=== PATIENT | male | born 1945 | race Caucasian/White ===

== ENCOUNTER → 2016-12-28 | Day surgery (SDC) | payer OTHER, MEDICAID ==
[~2016-12-28] MED LIST: D5 LR 1000 ML 1,000 ML IV ONE; DIPRIVAN VIAL 20 ML ONE
[2016-12-28 10:25] VITALS: BP 150/71
== END ==
LOC: SURG1 07:39
PROVIDERS: ATTEND Internal Medicine Gastroenterology
PROC: 0DJ08ZZ Inspection of Upper Intestinal Tract, Via Natural or Artificial Opening Endoscopic (ICD-10-PCS; principal; 2016-12-28 09:00)
PROC: 0DB68ZX Excision of Stomach, Via Natural or Artificial Opening Endoscopic, Diagnostic (ICD-10-PCS; principal; 2016-12-28 09:00)
PROC: 0D757ZZ Dilation of Esophagus, Via Natural or Artificial Opening (ICD-10-PCS; principal; 2016-12-28 09:00)
PROC: 0DB88ZX Excision of Small Intestine, Via Natural or Artificial Opening Endoscopic, Diagnostic (ICD-10-PCS; principal; 2016-12-28 09:00)
DX: R13.19 Other dysphagia (principal); K21.9 Gastro-esophageal reflux disease without esophagitis; K22.4 Dyskinesia of esophagus; K22.2 Esophageal obstruction; K20.8 Other esophagitis; K29.60 Other gastritis without bleeding
CPT/HCPCS: A4217; J3490; J7120

== ENCOUNTER 2017-03-03 11:36 | Emergency (ER) | payer OTHER, MEDICAID ==
[2017-03-03 11:41] VITALS: BP 157/73; BMI 30.5
[2017-03-03] MEDS ORDERED: LASIX IVP ONE ×2 (13:43→14:17)
[2017-03-03] MEDS ORDERED: DUONEB 0.5 MG/3 MG NEB ONE (13:44)
[2017-03-03] MEDS ORDERED: SOLU-Medrol 125 MG VIAL IVP ONE (13:44)
--- NOTE | 2017-03-03 13:49 | DR.GENAD ---
HPI - PCP Primary Care Physician: KUSHAL AKBAR - Complaint/Symptoms Chief Complaint Doctors Comments: Patient states he has been having SOB, wheezing and problems breathing for the past 3-4 days getting worst. patient states he has been having problems swallowing since his throat was stretched recently by Dr. Bauman few weeks ago. States he had his throat stretched three years ago. States he has been having swelling of his legs and feet with CIFUENTES and SOB with him being unable to lay flat. States he sleeps in the chair all night. He has inhalers that he has been using at home without improvement. States he smokes 1 1/2 pack cigarettes daily. He has a cough with whitish sputum production but denies chest pain or any recent trauma. Chief Complaint:: PATIENT IS C/O SOB BREATH AND FEELS HE CAN'T SWOLLOW. PATIENT STATED THAT IS HAS BEEN GOING ON FOR 2-3 DAYS - Nurses notes reviewed Nurses Notes Review: Yes - Source History Provided: Patient - Mode of Arrival Mode of Arrival: Ambulatory - Timing Onset of Chief Complaint: 03/01/17 Came on: Gradually - Duration Duration: Constant How lon Duration: Days - Location Location: SOB with leg swelling - Severity Severity: Moderate - Modifying Factors Worsens:: laying flat Improves:: nothing PMH - PMH Past Medical History: Yes Past Medical History: Diabetes, Dyslipidemia, Hypertension Past Surgical History: Yes Past Surgical History Comment: EGD,EYE - Family History History of Family Medical Conditions: No - Social History Does patient currently use any type of tobacco product: Yes Have you used tobacco products in the last 12 months: Yes Type of Tobacco Use: Cigarettes Does any household member use tobacco: No Alcohol Use: None Do you use any recreational Drugs:: No Lives With: Family Lives Where: Home - infectious screening In the last 2 months have you had wt loss of >10#?: NO Have you had fever, night sweats or hemotysis?: No Have you traveled outside the country in the last 6 months?: No Isolation: Standard ROS - Review of Systems Constitutional: No Symptoms Reported Eyes: No Symptoms Reported ENTM: No Symptoms Reported Respiratoy: No Symptoms Reported Cardiovascular: No Symptoms Reported Gastrointestinal/Abdominal: No Symptoms Reported Genitourinary: No Symptoms Reported Neurological: No Symptoms Reported Musculoskeletal: No Symptoms Reported Integumentary: No Symptoms Reported Hematologic/Lymphatic: No Symptoms Reported Endocrine: No Symptoms Reported Psychiatric: No Symptoms Reported PE - Vital Signs Vitals: Temperature 98.7 F Pulse Rate 56 Respiratory Rate 20 Blood Pressure 157/73 O2 Sat by Pulse Oximetry 92 - General Limitations: No Limitations General Appearance: Alert, In Distress (moderate) - Head Head Exam: Normal Inspection, Atraumatic, Normocephalic - Eyes Eye exam: Normal Appearance, PERRL, EOMI. negative: Scleral Icterus, Conjunctival Injection, Nystagmus, Miosis, Mydrasis, Periorbital Swelling, Periorbital Tenderness, Other - ENT ENT Exam: Normal Exam, Normal Oropharynx, Normal External Ear Exam, Mucous Membranes Moist, TM's Normal Bilaterally External Ear Exam: Normal External Inspection TM/Canal Exam: Bilateral Normal Nose Exam: Normal Nose Exam Mouth Exam: Normal Inspection Throat Exam: Normal Inspection - Neck Neck Exam: Normal Inspection, Full ROM, Trachea Midline. negative: Tenderness, Meningismus, Lymphadenopathy, Thyromegaly, Other - Chest Chest Inspection: Normal Inspection, Symmetric Chest Wall Rise - Respiratory Respiratory Exam: Normal Lung Sounds Bilat, Prolonged Expiratory Phase Respiratory Exam: Bilateral Wheezing, Bilateral Decreased Breath Sounds - Cardiovascular Cardiovascular Exam: Regular Rate, Normal Rhythm, Normal Heart Sounds, Systolic Murmur - Abdominal Exam Abdominal Exam: Normal Inspection, Normal Bowel Sounds, Soft, Distention Abdominal Tenderness: negative: RUQ, RLQ, LUQ, LLQ, Epigastrium, Suprapubic, Diffuse, Mild, Moderate, Severe, Other - Extremities Extremities Exam: Normal Inspection, Full ROM, Normal Capillary Refill, Edema (3 + edema legs and feet). negative: Tenderness, Joint Swelling, Calf Tenderness, Other - Back Back Exam: Normal Inspection, Full ROM. negative: Tenderness, (R) CVA Tenderness, (L) CVA Tenderness, Muscle Spasm, Paraspinal Tenderness, Vertebral Tenderness, Rashes, (R) Sciatic Notch Tenderness, (L) Sciatic Notch Tendern, (R ) Straight Leg Raise, (L) Straight Leg Raise, Other - Neurologic Neurological Exam: Alert, Oriented X3, CN II-XII Intact, Reflexes Normal. negative: Normal Gait (gait not tested) - Psychiatric Psychiatric Exam: Normal Affect, Normal Mood - Skin Skin Exam: Warm, Dry, Intact, Normal Color Course - Reevaluation 1st: Improved (Patient states he is not going to stay in the hospital. States he is feeling better and is ready to go home. Explained about his D-dimer test and need for CTA but states he is ready to go home.) - Education/Counseling Education/Counseling: Patient, Family Educated On: Treatment, Diagnosis, Prognosis, Needs for Follow Up ROR - Labs Reviewed Laboratory Results Reviewed?: Yes (All labs and x-ray results reviewed and discussed with patient and .) Result Diagrams: 03/03/17 13:55 03/03/17 13:55 Laboratory: WBC 8.1 X10^3/uL (3.6-10.0) 03/03/17 13:55 RBC 4.10 X10^6/uL (4.7-6.0) L 03/03/17 13:55 Hgb 12.4 g/dL (13.5-18.0) L 03/03/17 13:55 Hct 37.5 % (42.0-54.0) L 03/03/17 13:55 MCV 91.4 fL (80.0-100.0) 03/03/17 13:55 MCH 30.2 pg (27.0-34.0) 03/03/17 13:55 MCHC 33.1 g/dL (33.0-35.0) 03/03/17 13:55 RDW 15.0 % (11.6-16.5) 03/03/17 13:55 Plt Count 197 X10^3/uL (150.0-450.0) 03/03/17 13:55 MPV 7.4 fL (7.4-11.0) 03/03/17 13:55 Neut % 58.0 % (42.0-75.0) 03/03/17 13:55 Lymph % 30.8 % (21.0-51.0) 03/03/17 13:55 Trimble % 8.9 % (0.0-13.0) 03/03/17 13:55 Eos % 1.7 % (0.9-2.9) 03/03/17 13:55 Baso % 0.6 % (0.2-1.0) 03/03/17 13:55 Neut # 4.7 x10^3/uL (2.2-4.8) 03/03/17 13:55 Lymph # 2.5 X10^3/uL (1.3-2.9) 03/03/17 13:55 [place]ble # 0.7 x10^3/uL (0.3-0.8) 03/03/17 13:55 Eos # 0.1 x10^3/uL (0.0-0.2) 03/03/17 13:55 Baso # 0.0 X10^3/uL (0.0-0.1) 03/03/17 13:55 Absolute Nucleated RBC 0.0 /100WBC 03/03/17 13:55 INR Target Range - 03/03/17 13:55 INR 1.06 (0.8-1.3) 03/03/17 13:55 PTT 27.0 SECONDS (22.9-36.5) 03/03/17 13:55 PTT Comment - 03/03/17 13:55 D-Dimer 500 ng/mL (0-400) H* 03/03/17 13:55 Sodium 142 mmol/L (136-145) 03/03/17 13:55 Corrected Sodium TNP 03/03/17 13:55 Potassium 4.3 mmol/L (3.5-5.1) 03/03/17 13:55 Chloride 105 mmol/L (98-107) 03/03/17 13:55 Carbon Dioxide 31.7 mmol/L (21-32) 03/03/17 13:55 BUN 16 mg/dL (7-18) 03/03/17 13:55 Creatinine 1.15 mg/dL (0.70-1.30) 03/03/17 13:55 Est GFR (MDRD) Af Amer > 60 (>60) 03/03/17 13:55 Est GFR (MDRD) Non-Af > 60 (>60) 03/03/17 13:55 Glucose 87 mg/dL (65-99) 03/03/17 13:55 Calcium 9.7 mg/dL (8.5-10.1) 03/03/17 13:55 Corrected Calcium TNP 03/03/17 13:55 Magnesium 1.6 mg/dL (1.7-2.9) L 03/03/17 13:55 Total Bilirubin 0.40 mg/dL (0.2-1.0) 03/03/17 13:55 AST 16 Units/L (15-37) 03/03/17 13:55 ALT 15 Units/L (12-78) 03/03/17 13:55 Alkaline Phosphatase 40 Units/L (46-116) L 03/03/17 13:55 Creatine Kinase 73 Units/L (39-308) 03/03/17 13:55 CK-MB (CK-2) 1.7 ng/mL (0-4.0) 03/03/17 13:55 CK/CKMB % Calc 2.3 % (<4) 03/03/17 13:55 Troponin I < 0.02 ng/mL (0-1.5) 03/03/17 13:55 Total Protein 7.3 g/dL (6.4-8.2) 03/03/17 13:55 Albumin 3.5 g/dL (3.4-5.0) 03/03/17 13:55 Globulin 3.8 g/dL (2.5-4.5) 03/03/17 13:55 Albumin/Globulin Ratio 0.9 Ratio (1.1-2.1) L 03/03/17 13:55 - XRAY XRAY Interpreted by: Radiologist (CXR: COPD finding likely indicating pulmonary hypertension. No acute process identified.) - EKG Rate: 53 Odell: Normal Rhythm: SB ST: Inf, Nonsp - Diagnosis Discharge Problem: COPD exacerbation, Dependent edema, Pulmonary hypertension, Bronchitis - Discharge Plan Disposition: HOME, SELF-CARE Condition: Stable Prescriptions: Levofloxacin [LEVAQUIN TAB 500 MG *] 500 mg PO Q24H #7 tab Prednisone [PREDNISONE TAB 20 MG *] 20 mg PO QAM #5 tab - Follow ups/Referrals Follow ups/Referrals: EDDA,None [Primary Care Provider] - 3 days CAROLINA EDGAR [STAFF PHYSICIAN] - 3 days - Instructions Instructions: Chronic Obstructive Pulmonary Disease, Acute Bronchitis, Easy-to- Read, Edema, Pulmonary Hypertension
[2017-03-03] MEDS ORDERED: DUONEB 0.5 MG/3 MG ONE (13:50)
[2017-03-03 14:16] LABS: BASOPHILS % (AUTO) 0.6 % (0.2-1.0); EOSINOPHILS # (AUTO) 0.1 x10^3/uL (0.0-0.2); EOSINOPHILS % (AUTO) 1.7 % (0.9-2.9); HEMATOCRIT 37.5 % (42.0-54.0); HEMOGLOBIN 12.4 g/dL (13.5-18.0); LYMPHOCYTES # (AUTO) 2.5 X10^3/uL (1.3-2.9); LYMPHOCYTES % (AUTO) 30.8 % (21.0-51.0); MEAN CORPUSCULAR HEMOGLOBIN 30.2 pg (27.0-34.0); MEAN CORPUSCULAR HGB CONC 33.1 g/dL (33.0-35.0); MEAN CORPUSCULAR VOLUME 91.4 fL (80.0-100.0); MEAN PLATELET VOLUME 7.4 fL (7.4-11.0); MONOCYTES # (AUTO) 0.7 x10^3/uL (0.3-0.8); MONOCYTES % (AUTO) 8.9 % (0.0-13.0); NEUTROPHILS # (AUTO) 4.7 x10^3/uL (2.2-4.8); PLATELET COUNT 197 X10^3/uL (150.0-450.0); WHITE BLOOD COUNT 8.1 X10^3/uL (3.6-10.0)
[2017-03-03] MEDS ORDERED: SOLU-Medrol 125 MG VIAL ONE (14:17)
[2017-03-03 14:27] LABS: BLOOD UREA NITROGEN 16 mg/dL (7-18); CALCIUM 9.7 mg/dL (8.5-10.1); CARBON DIOXIDE 31.7 mmol/L (21-32); CHLORIDE 105 mmol/L (98-107); CREATININE 1.15 mg/dL (0.70-1.30); GLUCOSE 87 mg/dL (65-99); SODIUM 142 mmol/L (136-145); TROPONIN I < 0.02 ng/mL (0-1.5); eGFR BLACK RACES > 60 (>60); eGFR NON BLACK RACES > 60 (>60)
[2017-03-03 14:31] LABS: ALANINE AMINOTRANSFERASE 15 Units/L (12-78); ALBUMIN 3.5 g/dL (3.4-5.0); ALKALINE PHOSPHATASE 40 Units/L (46-116); ASPARTATE AMINO TRANSFERASE 16 Units/L (15-37); CKMB % 2.3 % (<4); CREATINE KINASE 73 Units/L (39-308); CREATINE KINASE MB 1.7 ng/mL (0-4.0); MAGNESIUM 1.6 mg/dL (1.7-2.9); TOTAL PROTEIN 7.3 g/dL (6.4-8.2)
--- NOTE | 2017-03-03 16:53 | RAD ---
HISTORY: Chest pain, shortness of breath Study: Single-view chest Comparison: No priors Findings: Trachea is midline. There is cardiomegaly with atherosclerotic calcification and uncoiling of the ao rtic arch. There is prominence of the main pulmonary artery segment. Hyperinflation of the lungs is seen with increased interstitial markings. Findings likely represent COPD in the appropriate clinica l setting some element of pulmonary artery hypertension may be present also. No infiltrate, CHF, ple ural fluid or pneumothorax is seen. No acute osseous changes are seen. IMPRESSION: COPD with findings likely indicating pulmonary artery hypertension. An acute process is not identifi ed. Hypertensive configuration. Reported By:
[2017-03-05 07:32] LABS: D DIMER 500 ng/mL (0-400)
== END 2017-03-03 17:44 | disposition home or self-care (01) ==
LOC: ER 11:42
DX: J44.1 Chronic obstructive pulmonary disease with (acute) exacerbation (principal); I27.2 Other secondary pulmonary hypertension; R60.9 Edema, unspecified; J40 Bronchitis, not specified as acute or chronic; Z79.01 Long term (current) use of anticoagulants; R06.02 Shortness of breath
CPT/HCPCS: 36415; 71010; 80053; 82550; 82553; 83735; 84484; 85025; 85378; 85610; 85730; 93005; 93010; 94640; 96365; 96374; 96375; 99283; A4222; J1940; J2930; J7620

== ENCOUNTER 2017-04-10 07:56 | Inpatient (IN) | payer OTHER, MEDICAID ==
[2017-04-10 08:01] VITALS: BMI 25.8
[2017-04-10 08:34] LABS: ABG BASE EXCESS 5.9 mmol/L (-2.0-2.0)
[2017-04-10 08:35] LABS: ABG ALLEN TEST POS
[2017-04-10] MEDS ORDERED: SOLU-Medrol 125 MG VIAL ONE (08:36)
[2017-04-10] MEDS ORDERED: SOLU-Medrol 125 MG VIAL IVP ONE (08:36)
[2017-04-10] MEDS ORDERED: LASIX IVP ONE ×2 (08:38)
[2017-04-10 09:07] LABS: BASOPHILS # (AUTO) 0.1 X10^3/uL (0.0-0.1); BASOPHILS % (AUTO) 0.7 % (0.2-1.0); EOSINOPHILS % (AUTO) 0.1 % (0.9-2.9); HEMATOCRIT 38.3 % (42.0-54.0); HEMOGLOBIN 12.5 g/dL (13.5-18.0); LYMPHOCYTES # (AUTO) 1.8 X10^3/uL (1.3-2.9); LYMPHOCYTES % (AUTO) 14.4 % (21.0-51.0); MEAN CORPUSCULAR HEMOGLOBIN 29.8 pg (27.0-34.0); MEAN CORPUSCULAR HGB CONC 32.7 g/dL (33.0-35.0); MEAN CORPUSCULAR VOLUME 91.2 fL (80.0-100.0); MEAN PLATELET VOLUME 7.5 fL (7.4-11.0); MONOCYTES # (AUTO) 0.8 x10^3/uL (0.3-0.8); MONOCYTES % (AUTO) 6.1 % (0.0-13.0); NEUTROPHILS # (AUTO) 9.8 x10^3/uL (2.2-4.8); NEUTROPHILS % (AUTO) 78.7 % (42.0-75.0); PLATELET COUNT 208 X10^3/uL (150.0-450.0); RED CELL DISTRIBUTION WIDTH 15.7 % (11.6-16.5); WHITE BLOOD COUNT 12.4 X10^3/uL (3.6-10.0)
[2017-04-10] MEDS ORDERED: NORCO 10/325 TAB PO ONE (09:15)
[2017-04-10] MEDS ORDERED: NORCO 10/325 TAB ONE (09:16)
[2017-04-10 09:19] LABS: BLOOD UREA NITROGEN 17 mg/dL (7-18); CALCIUM 8.8 mg/dL (8.5-10.1); CARBON DIOXIDE 30.7 mmol/L (21-32); CHLORIDE 101 mmol/L (98-107); COR NA(FOR HYPERGLY) 141 mmol/L (136-145); GLUCOSE 126 mg/dL (65-99); SODIUM 140 mmol/L (136-145); TROPONIN I 0.05 ng/mL (0-1.5); eGFR BLACK RACES > 60 (>60); eGFR NON BLACK RACES > 60 (>60)
[2017-04-10] MEDS ORDERED: ZESTRIL TAB 5 MG PO ONE (09:22)
[2017-04-10] MEDS ORDERED: TENORMIN PO ONE (09:22)
[2017-04-10 09:28] LABS: B-TYPE NATRIURETIC PEPTIDE 218 pg/mL (0-79)
--- NOTE | 2017-04-10 09:31 | DR.SOBA ---
HPI - Time Seen Time seen: 08:30 - Primary Care Physician Primary Care Physician: ? DOCTOR IN [place] - HPI Comment HPI Comment: TODAY, IT GOT WORSE. HE ALSO HAD STRIDOR THIS MORNING. NO FEVER. MEDS AT HOME DID NOT HELP. HAVE COPD AND POSSIBLY CHF. - Complaints Chief Complaint Doctors Comments: DIFFICULTY BREATHING TIMES 2 MONTHS. Chief Complaint:: EMS OUT TO PT WITH C/O DIFFICULTY BREATHING .. UPON ARRIVAL PT FOUND WITH 02 SAT OF 70.. DUO NEB GIVEN PT SATS INCREASED TO 98..BR - Reviewed Nurses Notes Reviewed: Yes - Source History Provided: Patient, EMS - Mode of Arrival Mode of Arrival: Stretcher - Timing Onset of Chief Complaint: 04/10/17 - Duration Duration: Days - Context Onset:: At Rest Prehospital Care:: None - Modifying Factors Worsens:: Exertion, Lying Flat, Anxiety Improves:: Inhaler, Sitting Up - Associated Signs and Symptoms Associated Signs and Symptoms: Wheeze, Cough, Chest Pain, Leg Swelling - If Cough Cough: Productive, Clear PMH - PMH Past Medical History: Yes Past Medical History: Diabetes, Dyslipidemia, Hypertension Past Medical History Comment: CHF Past Surgical History: Yes - Family History History of Family Medical Conditions: No - Social History Does patient currently use any type of tobacco product: No Have you used tobacco products in the last 12 months: No Type of Tobacco Use: None Does any household member use tobacco: No Alcohol Use: None Do you use any recreational Drugs:: No Lives With: Family Lives Where: Home - infectious screening In the last 2 months have you had wt loss of >10#?: NO Have you had fever, night sweats or hemotysis?: No Have you traveled outside the country in the last 6 months?: No Isolation: Standard ROS - Review of Systems Constitutional: Weakness, Fatigue. negative: Chills Eyes: No Symptoms Reported. negative: Eye Pain, Discharge ENTM: Nose Congestion. negative: Ear Pain, Nose Discharge, Throat Pain Respiratoy: Productive Cough, Short of Breath, Stridor, Wheezing. negative: Hemoptysis Cardiovascular: Chest Pain, Edema, Palpitations Gastrointestinal/Abdominal: Nausea. negative: Abdominal Pain, Diarrhea, Vomiting Genitourinary: negative: Dysuria, Hematuria Neurological: Headache, Weakness, Dizziness, Problems Walking Musculoskeletal: Muscle Pain Integumentary: Change in Color, Other (EDEMA) Hematologic/Lymphatic: Easy Bleeding, Easy Bruising Endocrine: No Symptoms Reported All Other Systems: Reviewed and Negative PE - Vital Signs Vitals: Temperature 98.3 F Pulse Rate 75 Respiratory Rate 22 Blood Pressure 208/93 O2 Sat by Pulse Oximetry 90 - General Limitations: No Limitations General Appearance: Alert - Head Head Exam: Normal Inspection - Eyes Eye exam: Normal Appearance - ENT ENT Exam: Normal External Ear Exam - Neck Neck Exam: Trachea Midline - Chest Chest Inspection: Symmetric Chest Wall Rise - Respiratory Respiratory Exam: Bilateral Wheezing, Bilateral Rhonchi, Bilateral Decreased Breath Sounds, Upper Wheezing, Upper Rhonchi, Lower Wheezing, Lower Rhonchi, Lower Decreased Breath Sounds - Cardiovascular Cardiovascular Exam: Normal Rhythm, Tachycardia, Normal Heart Sounds - Abdominal Exam Abdominal Exam: Normal Bowel Sounds, Soft. negative: Tenderness - Extremities Extremities Exam: Edema - Back Back Exam: Paraspinal Tenderness - Neurologic Neurological Exam: Alert, Oriented X3 - Psychiatric Psychiatric Exam: Anxious - Skin Skin Exam: Erythema MDM - Additional Information Obtained Additional Information Obtained From: Family - Differential Diagnosis Differential Diagnosis: Bronchitis, CHF, COPD, Mycardial Infarction, Pneumonia, Pneumothorax, Respiratory Insufficiency, URI Course - Treatment Treatment: SEE ORDERS - Education/Counseling Education/Counseling: Patient, Family, Education Educated On: Treatment, Diagnosis ROR - Labs Reviewed Laboratory Results Reviewed?: Yes Result Diagrams: 04/10/17 08:49 04/10/17 08:49 Laboratory: Sample Site Lra 04/10/17 08:21 ABG pH 7.320 (7.35-7.45) L 04/10/17 08:21 ABG pCO2 66.0 mmHg (35.0-45.0) H* 04/10/17 08:21 ABG pO2 58.0 mmHg (80.0-100.0) L 04/10/17 08:21 ABG HCO3 34.0 mmol/L (22-26) H* 04/10/17 08:21 ABG O2 Saturation 87.0 % (90-100) L 04/10/17 08:21 ABG Base Excess 5.9 mmol/L (-2.0-2.0) H 04/10/17 08:21 Dutch Test Pos 04/10/17 08:21 A-a Gradient 59.0 mmHg 04/10/17 08:21 FiO2 28.000 04/10/17 08:21 Blood Gas Comments Lashell well cs 04/10/17 08:21 - XRAY XRAY Interpreted by: Radiologist XRAY Findings: REPORT DISCUSS WITH PATIENT AND HIS FAMILY. - EKG Rhythm: NSR (EKG NOTED.) - Diagnosis Discharge Problem: COPD with acute exacerbation, Bronchitis, Respiratory insufficiency CHF (congestive heart failure) Qualifiers: Congestive heart failure type: combined Congestive heart failure chronicity: acute on chronic Qualified Code(s): I50.43 - Acute on chronic combined systolic (congestive) and diastolic (congestive) heart failure - Discharge Plan Disposition: ADMITTED INPATIENT Condition: Stable - Follow ups/Referrals - Instructions
[2017-04-10] MEDS ORDERED: ROCEPHIN VIAL 1 GM 1 GM in NS 50 ML IV + SPIKE MINIBAG* 50 ML IV ONE (09:40)
[2017-04-10] MEDS ORDERED: ROCEPHIN VIAL 1 GM ONE (09:43)
[2017-04-10] MEDS ORDERED: SALINE 0.9% 3 ML NEB TX ONE (09:51)
[2017-04-10] MEDS ORDERED: DUONEB 0.5 MG/3 MG ONE (09:51)
[2017-04-10 09:53] LABS: ALANINE AMINOTRANSFERASE 22 Units/L (12-78); ALBUMIN 3.1 g/dL (3.4-5.0); ALKALINE PHOSPHATASE 47 Units/L (46-116); ASPARTATE AMINO TRANSFERASE 27 Units/L (15-37); COR CA(FOR HYPOALB) 9.5 mg/dL (8.5-10.1); CREATINE KINASE 230 Units/L (39-308); TOTAL PROTEIN 7.1 g/dL (6.4-8.2)
[2017-04-10 09:59] LABS: CREATINE KINASE MB 4.5 ng/mL (0-4.0)
[2017-04-10] MEDS ORDERED: PULMICORT NEB TX 0.5 MG NEB ONE (10:01)
[2017-04-10] MEDS ORDERED: DUONEB 0.5 MG/3 MG NEB ONE (10:01)
[2017-04-10] MEDS ORDERED: ZOFRAN INJ 4 MG VIAL ONE (10:23)
[2017-04-10] MEDS ORDERED: MORPHINE SULFATE INJ 4 MG ONE (10:23)
[2017-04-10] MEDS ORDERED: MORPHINE SULFATE INJ 4 MG IVP ONE (10:37)
[2017-04-10] MEDS ORDERED: ZOFRAN INJ 4 MG VIAL IVP ONE (10:37)
[2017-04-10] MEDS: DUONEB 0.5 MG/3 MG NEB SCH ×3 (12:27→21:23)
--- NOTE | 2017-04-10 12:27 | RAD ---
Chest AP Indication: Shortness of breath. Comparison: March 03, 2017 Findings: The left costophrenic angle has been excluded from the exam and the patient is rotated towards the l eft. Given these limitations, streaky bibasilar opacities likely reflect atelectasis. The visualized lungs otherwise appear clear without focal consolidation or significant effusion. There is stable c ardiomegaly with unchanged prominence of the main pulmonary artery. No anthony interstitial edema is i dentified. Bony thorax appears normal. Impression: Stable mild cardiomegaly and unchanged prominence of the main pulmonary artery, suggestive of pulmon margret arterial hypertension. No current evidence of congestive failure or focal pneumonia. Reported By:
[2017-04-10 14:33] LABS: ABG BASE EXCESS 6.5 mmol/L (-2.0-2.0)
[2017-04-10 14:35] LABS: ABG ALLEN TEST POS; ABG HCO3 35.7 mmol/L (22-26)
[2017-04-10 15:18] LABS: BILIRUBIN,URINE NEGATIVE (NEGATIVE); BLOOD/HEMOGLOBIN,URINE 3+ (NEGATIVE); GLUCOSE, URINE NEGATIVE (NEGATIVE); KETONES,URINE NEGATIVE (NEGATIVE); LEUKOCYTE ESTERASE ,URINE 1+ (NEGATIVE); NITRITES,URINE NEGATIVE (NEGATIVE); PROTEIN,URINE 4+ (NEGATIVE); UROBILINOGEN,URINE NORMAL (NORMAL)
[2017-04-10 15:41] LABS: APPEARANCE,URINE HAZY (CLEAR); BACTERIA,URINE TRACE /HPF (NEGATIVE); COLOR,URINE YELLOW (YELLOW); RBC,URINE 0-2 /HPF (NEGATIVE); SQUAMOUS EPITHELIAL CELL,UR NEGATIVE /HPF (NEGATIVE)
[2017-04-10 15:42] LABS: MUCUS,URINE FEW /HPF (NEGATIVE)
[2017-04-10 16:17] LABS: CKMB % 2.4 % (<4); TROPONIN I 0.06 ng/mL (0-1.5)
[2017-04-10 16:21] LABS: CREATINE KINASE MB 5.3 ng/mL (0-4.0)
[2017-04-10] MEDS ORDERED: VALIUM INJ ONE (17:15)
[2017-04-10] MEDS ORDERED: VALIUM INJ IVP PRN (17:33)
[2017-04-10] MEDS ORDERED: HumuLIN R SC PRN (21:54)
[2017-04-10] MEDS ORDERED: ATIVAN TAB 0.5 MG PO PRN (21:58)
[2017-04-10] MEDS ORDERED: NORCO 10/325 TAB PO PRN (21:59)
[2017-04-10 22:25] LABS: TROPONIN I 0.05 ng/mL (0-1.5)
[2017-04-10 23:05] LABS: CKMB % 2.4 % (<4)
[2017-04-10 23:06] LABS: CREATINE KINASE MB 4.9 ng/mL (0-4.0)
[2017-04-10] MEDS: SOLU-Medrol 40 MG VIAL IVP SCH (23:08)
[2017-04-11] MEDS: DUONEB 0.5 MG/3 MG NEB SCH ×6 (00:54→21:10)
[2017-04-11 05:33] LABS: ALANINE AMINOTRANSFERASE 20 Units/L (12-78); ALBUMIN 2.9 g/dL (3.4-5.0); ALKALINE PHOSPHATASE 43 Units/L (46-116); ASPARTATE AMINO TRANSFERASE 24 Units/L (15-37); BLOOD UREA NITROGEN 28 mg/dL (7-18); CALCIUM 8.5 mg/dL (8.5-10.1); CARBON DIOXIDE 33.8 mmol/L (21-32); CHLORIDE 100 mmol/L (98-107); CHOL/HDL RATIO 2.4 (0.0-5.0); CHOLESTEROL 145 mg/dL (0-200); COR CA(FOR HYPOALB) 9.4 mg/dL (8.5-10.1); COR NA(FOR HYPERGLY) 142 mmol/L (136-145); CREATININE 1.08 mg/dL (0.70-1.30); GLUCOSE 219 mg/dL (65-99); HDL CHOLESTEROL 61 mg/dL (40-60); MAGNESIUM 1.9 mg/dL (1.7-2.9); SODIUM 139 mmol/L (136-145); TRIGLYCERIDES 104 mg/dL (0-150); eGFR BLACK RACES > 60 (>60); eGFR NON BLACK RACES > 60 (>60)
[2017-04-11] MEDS ORDERED: GLUCOPHAGE ONE ×3 (05:51→16:49)
[2017-04-11 05:56] LABS: BASOPHILS # (AUTO) 0.1 X10^3/uL (0.0-0.1); BASOPHILS % (AUTO) 0.5 % (0.2-1.0); HEMATOCRIT 38.8 % (42.0-54.0); HEMOGLOBIN 12.9 g/dL (13.5-18.0); LYMPHOCYTES # (AUTO) 1.1 X10^3/uL (1.3-2.9); LYMPHOCYTES % (AUTO) 9.4 % (21.0-51.0); MEAN CORPUSCULAR HEMOGLOBIN 30.6 pg (27.0-34.0); MEAN CORPUSCULAR HGB CONC 33.3 g/dL (33.0-35.0); MEAN CORPUSCULAR VOLUME 91.9 fL (80.0-100.0); MEAN PLATELET VOLUME 8.1 fL (7.4-11.0); MONOCYTES # (AUTO) 0.3 x10^3/uL (0.3-0.8); MONOCYTES % (AUTO) 2.9 % (0.0-13.0); NEUTROPHILS # (AUTO) 9.8 x10^3/uL (2.2-4.8); NEUTROPHILS % (AUTO) 87.2 % (42.0-75.0); PLATELET COUNT 227 X10^3/uL (150.0-450.0); RED BLOOD COUNT 4.22 X10^6/uL (4.7-6.0); RED CELL DISTRIBUTION WIDTH 15.4 % (11.6-16.5); WHITE BLOOD COUNT 11.2 X10^3/uL (3.6-10.0)
[2017-04-11] MEDS: SOLU-Medrol 40 MG VIAL IVP SCH ×2 (06:23→14:59)
[2017-04-11] MEDS: GLUCOPHAGE PO SCH ×2 (06:23→16:30)
[2017-04-11] MEDS: HumuLIN R SUBCUT PRN ×3 (06:23→20:17)
[2017-04-11] MEDS ORDERED: NS 500 ML IV 500 ML IV ONE (08:38)
[2017-04-11] MEDS: ROCEPHIN VIAL 1 GM 1 GM in NS 50 ML IV + SPIKE MINIBAG* 50 ML IV SCH ×2 (09:00→09:02)
[2017-04-11] MEDS: COLACE CAP 100 MG PO SCH (09:01)
[2017-04-11] MEDS: PriLOSEC PO SCH (09:01)
[2017-04-11] MEDS: NIASPAN ER TAB 500 MG PO SCH (09:01)
[2017-04-11] MEDS: TENORMIN PO SCH (09:01)
[2017-04-11] MEDS: ASPIRIN 81 MG CHEWTAB PO SCH (09:04)
[2017-04-11] MEDS: FLONASE NASAL SPRAY ENOSTRIL SCH ×3 (09:08→20:18)
[2017-04-11] MEDS: ZESTRIL TAB 5 MG PO SCH (09:08)
[2017-04-11] MEDS ORDERED: TENORMIN PO ONE (09:15)
[2017-04-11] MEDS ORDERED: ZESTRIL TAB 5 MG PO ONE (09:15)
[2017-04-11] MEDS: LASIX PO SCH (09:25)
[2017-04-11] MEDS: BROVANA IN SCH ×2 (09:58→21:10)
[2017-04-11] MEDS: PULMICORT NEB TX 0.5 MG NEB SCH ×2 (09:58→21:10)
--- NOTE | 2017-04-11 13:12 | DR.H&P ---
H&P - History & Physical for Day of: H&P Date: 04/10/17 - Chief Complaint Chief Complaint: SOB, CCC - Allergies Allergies/Adverse Reactions: Allergies Allergy/AdvReac Type Severity Reaction Status Date / Time No Known Drug Allergies Allergy Verified 04/10/17 09:11 - History of Present Illness History of Present Illness: ER ADMISSION AFTER PRESENTING WITH CO SOB, PER EMS PTS O2 STAT ON ARRIVAL 70'S. PT HAD CXR ON ADMISSION AND ELEVATED WBC IN ER. PLAN TO ADMIT TO ICU FOR BIPAP, RESP THERAPY AND IV ATBX. PLAN TO RESUME HOME MEDS AND REPEAT AM LABS - Past Medical History Past Medical History: COPD, Diabetes, Dyslipidemia, Hypertension - Past Surgical History Surgical History: Other - Social History Does patient currently use any type of tobacco product: No Have you used tobacco products in the last 12 months: No Type of Tobacco Use: None How many years tobacco product used: 50 Does any household member use tobacco: No Alcohol Use: None Drug Use: None - Medications Home Medications: Albuterol Neb 2.5MG/ 3Ml [ALBUTEROL NEB 2.5MG/ 3ML *] 1 inh INH PRN PRN [History Confirmed 04/10/17] Fluticasone Nasal Mcgrath [FLONASE NASAL SPRAY *] 1 spray INH BID 04/10/17 [ History Confirmed 04/10/17] Hydrocodone-Acet 10/325 mg [NORCO 10 MG/325 MG *] 1 tab PO PRN PRN 04/10/17 [ History Confirmed 04/10/17] Lorazepam [ATIVAN 1 MG TAB *] 1 tab PO PRN PRN 04/10/17 [History Confirmed 04/10] Misc Home Med [Patient's Home Medication] 1 tab PO BID PRN 04/10/17 [History Confirmed 04/10/17] [place]-3S/Dha/Epa/Fish Oil [Fish Oil 1,200 mg Softgel] 1 tab PO DAILY 04/10/17 [ History Confirmed 04/10/17] Simethicone [Gas Relief] 1 tab PO PRN PRN 04/10/17 [History Confirmed 04/10/17] Sitagliptin Phos/Metformin HCl [Janumet 50-1,000 mg Tablet] 1 tab PO BID [History Confirmed 04/10/17] - Review of Systems Constitutional: Weakness Eyes: No Symptoms Reported ENT: No Symptoms Reported Respiratory: Cough, Shortness of Breath, SOB with Excertion, Sputum, Wheezing Cardiovascular: Chest Pain Gastrointestinal: No Symptoms Reported Genitourinary: No Symptoms Reported Musculoskeletal: No Symptoms Reported Skin: No Symptoms Reported Neurological: Weakness - Physical Exam Vital Signs: Temperature 99.4 F Pulse Rate [Left Brachial] 60 Pulse Rate 76 Respiratory Rate 17 Blood Pressure [Left Arm] 159/73 O2 Sat by Pulse Oximetry 92 Oriented: Normal Eyes: Normal Ear: Normal Nose: Normal Throat: Normal Respiratory: Rhonchi Throughout, Wheezes Throughout, RLL Diminished, LLL Diminished Cardiovascular: Tachycardia, Edema : Normal Auscultation: Bowel Sounds: Normal Palpation: Normal Tenderness: Normal Skin: Wound ( REDNESS RLE AROUND ANKLE) Musculoskeletal: Back:Lumbar Mood Description: Calm Speech Pattern: Clear, Appropriate - Assessment/Plan (1) COPD with acute exacerbation Status: Acute Plan: ADMIT, IV ATBX, RESP THERAPY. BIPAP, SUPPLEMENTAL O2. BLOOD AND SPUTUM CULTURES, REPEAT AM LABS. CARDIAC MONITORING, BP CONTROL (2) Respiratory insufficiency Status: Acute (3) CHF (congestive heart failure) Qualifiers: Congestive heart failure type: combined Congestive heart failure chronicity : acute on chronic Qualified Code(s): I50.43 - Acute on chronic combined systolic (congestive) and diastolic (congestive) heart failure Status: Chronic
--- NOTE | 2017-04-11 13:20 | PCM.PROG ---
Progress Note - Progress Note for Day of Date: 04/11/17 - Subjective Subjective: CONTINUED WITH CO SOB, INCREASED SPUTUM PRODUCTION. LOWER EXTREMITY SWELLING, RESP DISTRESS IMPROVING - Past Medical Family Social History Past Med/Fam/Surg Hx: No changes since H&P Allergies: Allergies No Known Drug Allergies Allergy (Verified 04/10/17 09:11) - Review of Systems ROS: No change since H&P - Vital Signs and I&O's Vital Signs: Temperature 99.4 F Pulse Rate [Left Brachial] 60 Pulse Rate 76 Respiratory Rate 17 Blood Pressure [Left Arm] 159/73 O2 Sat by Pulse Oximetry 92 Intake and Output: Intake & Output 04/09/17 04/10/17 04/11/17 04/12/17 11:59 11:59 11:59 11:59 Intake Total 1040 Output Total 250 Balance 790 - Physical Exam Oriented: Normal Eyes: Normal Ear: Normal Nose: Normal Throat: Normal Respiratory: Diminished, Wheezes, Rhonchi Cardiovascular: Tachycardia, Edema : Normal Auscultation: Bowel Sounds: Normal Tenderness: Normal Skin: Wound ( REDNESS RLE AROUND ANKLE) Musculoskeletal: Back:Lumbar Mood Description: Calm Speech Pattern: Clear, Appropriate - Laboratory and Diagnostics Result Diagrams: 04/11/17 03:00 04/11/17 03:00 Labs: Laboratory WBC 11.2 X10^3/uL (3.6-10.0) H 04/11/17 03:00 RBC 4.22 X10^6/uL (4.7-6.0) L 04/11/17 03:00 Hgb 12.9 g/dL (13.5-18.0) L 04/11/17 03:00 Hct 38.8 % (42.0-54.0) L 04/11/17 03:00 MCV 91.9 fL (80.0-100.0) 04/11/17 03:00 MCH 30.6 pg (27.0-34.0) 04/11/17 03:00 MCHC 33.3 g/dL (33.0-35.0) 04/11/17 03:00 RDW 15.4 % (11.6-16.5) 04/11/17 03:00 Plt Count 227 X10^3/uL (150.0-450.0) 04/11/17 03:00 MPV 8.1 fL (7.4-11.0) 04/11/17 03:00 Neut % 87.2 % (42.0-75.0) H 04/11/17 03:00 Lymph % 9.4 % (21.0-51.0) L 04/11/17 03:00 [place]yer % 2.9 % (0.0-13.0) 04/11/17 03:00 Eos % 0.0 % (0.9-2.9) L 04/11/17 03:00 Baso % 0.5 % (0.2-1.0) 04/11/17 03:00 Neut # 9.8 x10^3/uL (2.2-4.8) H 04/11/17 03:00 Lymph # 1.1 X10^3/uL (1.3-2.9) L 04/11/17 03:00 [place]yer # 0.3 x10^3/uL (0.3-0.8) 04/11/17 03:00 Eos # 0.0 x10^3/uL (0.0-0.2) 04/11/17 03:00 Baso # 0.1 X10^3/uL (0.0-0.1) 04/11/17 03:00 Absolute Nucleated RBC 0.0 /100WBC 04/11/17 03:00 Sample Site Left radial 04/10/17 14:25 ABG pH 7.280 (7.35-7.45) L 04/10/17 14:25 ABG pCO2 76.0 mmHg (35.0-45.0) H* 04/10/17 14:25 ABG pO2 62.0 mmHg (80.0-100.0) L 04/10/17 14:25 ABG HCO3 35.7 mmol/L (22-26) H* 04/10/17 14:25 ABG O2 Saturation 88.0 % (90-100) L 04/10/17 14:25 ABG Base Excess 6.5 mmol/L (-2.0-2.0) H 04/10/17 14:25 Dutch Test Pos 04/10/17 14:25 A-a Gradient 57.0 mmHg 04/10/17 14:25 FiO2 30.000 04/10/17 14:25 Blood Gas Comments Lashell well 04/10/17 14:25 Sodium 139 mmol/L (136-145) 04/11/17 03:00 Corrected Sodium 142 mmol/L (136-145) 04/11/17 03:00 Potassium 3.8 mmol/L (3.5-5.1) 04/11/17 03:00 Chloride 100 mmol/L (98-107) 04/11/17 03:00 Carbon Dioxide 33.8 mmol/L (21-32) H 04/11/17 03:00 BUN 28 mg/dL (7-18) H 04/11/17 03:00 Creatinine 1.08 mg/dL (0.70-1.30) 04/11/17 03:00 Est GFR (MDRD) Af Amer > 60 (>60) 04/11/17 03:00 Est GFR (MDRD) Non-Af > 60 (>60) 04/11/17 03:00 Glucose 219 mg/dL (65-99) H 04/11/17 03:00 Calcium 8.5 mg/dL (8.5-10.1) 04/11/17 03:00 Corrected Calcium 9.4 mg/dL (8.5-10.1) 04/11/17 03:00 Magnesium 1.9 mg/dL (1.7-2.9) 04/11/17 03:00 Total Bilirubin 0.30 mg/dL (0.2-1.0) 04/11/17 03:00 AST 24 Units/L (15-37) 04/11/17 03:00 ALT 20 Units/L (12-78) 04/11/17 03:00 Alkaline Phosphatase 43 Units/L (46-116) L 04/11/17 03:00 Creatine Kinase 201 Units/L (39-308) 04/10/17 21:30 CK-MB (CK-2) 4.9 ng/mL (0-4.0) H* 04/10/17 21:30 CK/CKMB % Calc 2.4 % (<4) 04/10/17 21:30 Troponin I 0.05 ng/mL (0-1.5) 04/10/17 21:30 B-Natriuretic Peptide 218 pg/mL (0-79) H 04/10/17 08:49 Total Protein 7.0 g/dL (6.4-8.2) 04/11/17 03:00 Albumin 2.9 g/dL (3.4-5.0) L 04/11/17 03:00 Globulin 4.1 g/dL (2.5-4.5) 04/11/17 03:00 Albumin/Globulin Ratio 0.7 Ratio (1.1-2.1) L 04/11/17 03:00 Triglycerides 104 mg/dL (0-150) 04/11/17 03:00 Cholesterol 145 mg/dL (0-200) 04/11/17 03:00 LDL Cholesterol, Calc 63 mg/dL (0-100) 04/11/17 03:00 HDL Cholesterol 61 mg/dL (40-60) H 04/11/17 03:00 Cholesterol/HDL Ratio 2.4 (0.0-5.0) 04/11/17 03:00 Specimen Type Clean catch urine 04/10/17 15:07 Urine Color Yellow (YELLOW) 04/10/17 15:07 Urine Appearance Hazy (CLEAR) 04/10/17 15:07 Urine pH 5.0 (5.0 - 8.0) 04/10/17 15:07 Ur Specific [place] 1.020 (1.000-1.030) 04/10/17 15:07 Urine Protein 4+ (NEGATIVE) 04/10/17 15:07 Urine Glucose (UA) Negative (NEGATIVE) 04/10/17 15:07 Urine Ketones Negative (NEGATIVE) 04/10/17 15:07 Urine Occult Blood 3+ (NEGATIVE) 04/10/17 15:07 Urine Nitrite Negative (NEGATIVE) 04/10/17 15:07 Urine Bilirubin Negative (NEGATIVE) 04/10/17 15:07 Urine Urobilinogen Normal (NORMAL) 04/10/17 15:07 Ur Leukocyte Esterase 1+ (NEGATIVE) 04/10/17 15:07 Urine RBC 0-2 /HPF (NEGATIVE) 04/10/17 15:07 Urine WBC 3-5 /HPF (NEGATIVE) 04/10/17 15:07 Ur Squamous Epith Cells Negative /HPF (NEGATIVE) 04/10/17 15:07 Urine Bacteria Trace /HPF (NEGATIVE) 04/10/17 15:07 Urine Mucus Few /HPF (NEGATIVE) 04/10/17 15:07 Ur Culture Indicated? No/not indicated 04/10/17 15:07 - Plan (1) COPD with acute exacerbation Status: Acute Plan: SPUTUM PENDING, CONTINUE IV ATBX. RESP THERAPY, SUPPLEMENTAL O2. REPEAT AM LABS AND CHEST XRAY (2) Respiratory insufficiency Status: Acute (3) CHF (congestive heart failure) Status: Chronic Qualifiers: Congestive heart failure type: combined Congestive heart failure chronicity : acute on chronic Qualified Code(s): I50.43 - Acute on chronic combined systolic (congestive) and diastolic (congestive) heart failure Plan: I & OS, BP CONTROL
[2017-04-11] MEDS: NEURONTIN TAB 600 MG PO SCH (20:16)
[2017-04-11] MEDS: CRESTOR TAB 10 MG PO SCH (20:17)
[2017-04-11] MEDS: SNACK - Diabetic Appropriate PO SCH (20:18)
[2017-04-11] MEDS ORDERED: SIMETHICONE PO PRN (20:38)
[2017-04-11] MEDS ORDERED: PATIENT'S HOME MEDICATION PO PRN (20:38)
[2017-04-11] MEDS ORDERED: NORCO 10/325 TAB PO PRN (20:38)
[2017-04-11] MEDS ORDERED: FLONASE NASAL SPRAY ENOSTRIL SCH (21:00)
[2017-04-11] MEDS ORDERED: [UNRECOGNIZED DRUG - OTHER] PO SCH (21:00)
[2017-04-11] MEDS ORDERED: COLACE CAP 100 MG PO SCH (21:00)
[2017-04-11] MEDS ORDERED: METFORMIN HCL PO SCH (21:00)
[2017-04-11] MEDS ORDERED: PATIENT'S HOME MEDICATION (Rosuvastatin Calcium [Crestor] 20 MG) PO SCH (21:00)
[2017-04-11] MEDS ORDERED: NEURONTIN TAB 600 MG PO SCH (21:00)
[2017-04-11] MEDS ORDERED: SITAGLIPTIN PHOS PO SCH (21:00)
[2017-04-11] MEDS ORDERED: ROBITUSSIN DM PO PRN (23:20)
[2017-04-12] MEDS: DUONEB 0.5 MG/3 MG NEB SCH ×6 (00:09→20:46)
[2017-04-12] MEDS: SOLU-Medrol 40 MG VIAL IVP SCH ×2 (01:58→15:06)
[2017-04-12 05:04] LABS: BASOPHILS # (AUTO) 0.1 X10^3/uL (0.0-0.1); BASOPHILS % (AUTO) 0.4 % (0.2-1.0); HEMATOCRIT 36.6 % (42.0-54.0); HEMOGLOBIN 12.1 g/dL (13.5-18.0); LYMPHOCYTES # (AUTO) 1.7 X10^3/uL (1.3-2.9); LYMPHOCYTES % (AUTO) 12.4 % (21.0-51.0); MEAN CORPUSCULAR HEMOGLOBIN 30.2 pg (27.0-34.0); MEAN CORPUSCULAR VOLUME 91.4 fL (80.0-100.0); MEAN PLATELET VOLUME 8.1 fL (7.4-11.0); MONOCYTES % (AUTO) 6.8 % (0.0-13.0); NEUTROPHILS # (AUTO) 11.2 x10^3/uL (2.2-4.8); NEUTROPHILS % (AUTO) 80.4 % (42.0-75.0); PLATELET COUNT 216 X10^3/uL (150.0-450.0); RED BLOOD COUNT 4.01 X10^6/uL (4.7-6.0)
[2017-04-12 05:13] LABS: ALANINE AMINOTRANSFERASE 20 Units/L (12-78); ALBUMIN 2.8 g/dL (3.4-5.0); ALKALINE PHOSPHATASE 46 Units/L (46-116); ASPARTATE AMINO TRANSFERASE 21 Units/L (15-37); BLOOD UREA NITROGEN 31 mg/dL (7-18); CALCIUM 8.6 mg/dL (8.5-10.1); CARBON DIOXIDE 35.2 mmol/L (21-32); CHLORIDE 104 mmol/L (98-107); COR CA(FOR HYPOALB) 9.6 mg/dL (8.5-10.1); CREATININE 1.11 mg/dL (0.70-1.30); GLUCOSE 99 mg/dL (65-99); SODIUM 144 mmol/L (136-145); TOTAL PROTEIN 6.6 g/dL (6.4-8.2); eGFR BLACK RACES > 60 (>60); eGFR NON BLACK RACES > 60 (>60)
[2017-04-12] MEDS ORDERED: GLUCOPHAGE ONE ×2 (05:51→17:59)
[2017-04-12] MEDS: GLUCOPHAGE PO SCH ×2 (06:04→18:12)
[2017-04-12] MEDS: HumuLIN R SUBCUT PRN ×4 (06:05→20:02)
--- NOTE | 2017-04-12 06:31 | RAD ---
HISTORY: COPD Study: Chest one view Comparison: April 10, 2017 Findings: The heart is within normal limits in size. The sneha are normal. The lungs are hyperinflated but free of acute alveolar infiltrates. No pleural effusions are identified. The bony thorax is unremarkable . IMPRESSION: Lungs hyperinflated but clear, consistent with COPD in the appropriate clinical situation Reported By:
[2017-04-12] MEDS ORDERED: MYLICON TAB 80 MG CHEW PO PRN (07:07)
[2017-04-12] MEDS ORDERED: LOVAZA PO SCH (09:00)
[2017-04-12] MEDS ORDERED: ASPIRIN EC 81 MG PO SCH (09:00)
[2017-04-12] MEDS ORDERED: LASIX PO SCH (09:00)
[2017-04-12] MEDS ORDERED: ZESTRIL TAB 5 MG PO SCH (09:00)
[2017-04-12] MEDS ORDERED: PriLOSEC PO SCH (09:00)
[2017-04-12] MEDS ORDERED: ATENOLOL 100 MG PO SCH (09:00)
[2017-04-12] MEDS ORDERED: NIACIN 1000 MG PO SCH (09:00)
[2017-04-12] MEDS ORDERED: PATIENT'S HOME MEDICATION (Omega-3s/Dha/Epa/Fish Oil [Fish Oil 1,200 Mg Softgel] 1 TAB) PO SCH (09:00)
[2017-04-12] MEDS: BROVANA IN SCH ×2 (09:32→20:47)
[2017-04-12] MEDS: PULMICORT NEB TX 0.5 MG NEB SCH ×2 (09:33→20:46)
[2017-04-12] MEDS: COLACE CAP 100 MG PO SCH (10:00)
[2017-04-12] MEDS: LASIX PO SCH (10:01)
[2017-04-12] MEDS: PriLOSEC PO SCH (10:01)
[2017-04-12] MEDS: NIASPAN ER TAB 500 MG PO SCH (10:01)
[2017-04-12] MEDS: ASPIRIN 81 MG CHEWTAB PO SCH (10:01)
[2017-04-12] MEDS: TENORMIN PO SCH (10:02)
[2017-04-12] MEDS: ZESTRIL TAB 5 MG PO SCH (10:02)
[2017-04-12] MEDS: LOVAZA PO SCH (10:02)
[2017-04-12] MEDS: FLONASE NASAL SPRAY ENOSTRIL SCH ×2 (10:03→20:03)
[2017-04-12] MEDS: JANUVIA PO SCH ×2 (10:07→18:12)
[2017-04-12] MEDS: ROCEPHIN VIAL 1 GM 1 GM in NS 50 ML IV + SPIKE MINIBAG* 50 ML IV SCH (10:08)
--- NOTE | 2017-04-12 18:10 | PCM.PROG ---
Progress Note - Progress Note for Day of Date: 04/12/17 - Subjective Subjective: patient is a 71-year-old white male who was admitted to ICU with respiratory distress, COPD exacerbation. Patient has received IV antibiotics and IV steroids as well as respiratory therapy with BiPAP. This morning patient is sitting up in chair states he feels much improved reports continued sputum production. Patient's culture results Klebsiella and sputum patient is currently sensitive to IV regimen will continue IV antibiotics and repeat a.m. labs discussed possible discharge on 04/13 - Past Medical Family Social History Past Med/Fam/Surg Hx: No changes since H&P Allergies: Allergies No Known Drug Allergies Allergy (Verified 04/10/17 09:11) - Review of Systems ROS: No change since H&P - Vital Signs and I&O's Vital Signs: Temperature 97.8 F Pulse Rate [Left Brachial] 78 Pulse Rate 84 Respiratory Rate 18 Blood Pressure [Left Arm] 154/79 O2 Sat by Pulse Oximetry 100 Intake and Output: Intake & Output 04/10/17 04/11/17 04/12/17 04/13/17 11:59 11:59 11:59 11:59 Intake Total 1040 2705 Output Total 250 250 Balance 790 2455 - Physical Exam Oriented: Normal Eyes: Normal Ear: Normal Nose: Normal Throat: Normal Respiratory: Diminished, Wheezes, Rhonchi Cardiovascular: Tachycardia, Edema : Normal Auscultation: Bowel Sounds: Normal Tenderness: Normal Skin: Wound ( REDNESS RLE AROUND ANKLE) Musculoskeletal: Back:Lumbar Mood Description: Calm Speech Pattern: Clear, Appropriate - Laboratory and Diagnostics Result Diagrams: 04/12/17 03:05 04/12/17 03:05 Labs: Laboratory WBC 14.0 X10^3/uL (3.6-10.0) H 04/12/17 03:05 RBC 4.01 X10^6/uL (4.7-6.0) L 04/12/17 03:05 Hgb 12.1 g/dL (13.5-18.0) L 04/12/17 03:05 Hct 36.6 % (42.0-54.0) L 04/12/17 03:05 MCV 91.4 fL (80.0-100.0) 04/12/17 03:05 MCH 30.2 pg (27.0-34.0) 04/12/17 03:05 MCHC 33.0 g/dL (33.0-35.0) 04/12/17 03:05 RDW 15.0 % (11.6-16.5) 04/12/17 03:05 Plt Count 216 X10^3/uL (150.0-450.0) 04/12/17 03:05 MPV 8.1 fL (7.4-11.0) 04/12/17 03:05 Neut % 80.4 % (42.0-75.0) H 04/12/17 03:05 Lymph % 12.4 % (21.0-51.0) L 04/12/17 03:05 [place] % 6.8 % (0.0-13.0) 04/12/17 03:05 Eos % 0.0 % (0.9-2.9) L 04/12/17 03:05 Baso % 0.4 % (0.2-1.0) 04/12/17 03:05 Neut # 11.2 x10^3/uL (2.2-4.8) H 04/12/17 03:05 Lymph # 1.7 X10^3/uL (1.3-2.9) 04/12/17 03:05 [place] # 1.0 x10^3/uL (0.3-0.8) H 04/12/17 03:05 Eos # 0.0 x10^3/uL (0.0-0.2) 04/12/17 03:05 Baso # 0.1 X10^3/uL (0.0-0.1) 04/12/17 03:05 Absolute Nucleated RBC 0.1 /100WBC 04/12/17 03:05 Sample Site Left radial 04/10/17 14:25 ABG pH 7.280 (7.35-7.45) L 04/10/17 14:25 ABG pCO2 76.0 mmHg (35.0-45.0) H* 04/10/17 14:25 ABG pO2 62.0 mmHg (80.0-100.0) L 04/10/17 14:25 ABG HCO3 35.7 mmol/L (22-26) H* 04/10/17 14:25 ABG O2 Saturation 88.0 % (90-100) L 04/10/17 14:25 ABG Base Excess 6.5 mmol/L (-2.0-2.0) H 04/10/17 14:25 Dutch Test Pos 04/10/17 14:25 A-a Gradient 57.0 mmHg 04/10/17 14:25 FiO2 30.000 04/10/17 14:25 Blood Gas Comments [place] well 04/10/17 14:25 Sodium 144 mmol/L (136-145) 04/12/17 03:05 Corrected Sodium TNP 04/12/17 03:05 Potassium 3.7 mmol/L (3.5-5.1) 04/12/17 03:05 Chloride 104 mmol/L (98-107) 04/12/17 03:05 Carbon Dioxide 35.2 mmol/L (21-32) H 04/12/17 03:05 BUN 31 mg/dL (7-18) H 04/12/17 03:05 Creatinine 1.11 mg/dL (0.70-1.30) 04/12/17 03:05 Est GFR (MDRD) Af Amer > 60 (>60) 04/12/17 03:05 Est GFR (MDRD) Non-Af > 60 (>60) 04/12/17 03:05 Glucose 99 mg/dL (65-99) 04/12/17 03:05 Calcium 8.6 mg/dL (8.5-10.1) 04/12/17 03:05 Corrected Calcium 9.6 mg/dL (8.5-10.1) 04/12/17 03:05 Magnesium 1.9 mg/dL (1.7-2.9) 04/11/17 03:00 Total Bilirubin 0.20 mg/dL (0.2-1.0) 04/12/17 03:05 AST 21 Units/L (15-37) 04/12/17 03:05 ALT 20 Units/L (12-78) 04/12/17 03:05 Alkaline Phosphatase 46 Units/L (46-116) 04/12/17 03:05 Creatine Kinase 201 Units/L (39-308) 04/10/17 21:30 CK-MB (CK-2) 4.9 ng/mL (0-4.0) H* 04/10/17 21:30 CK/CKMB % Calc 2.4 % (<4) 04/10/17 21:30 Troponin I 0.05 ng/mL (0-1.5) 04/10/17 21:30 B-Natriuretic Peptide 218 pg/mL (0-79) H 04/10/17 08:49 Total Protein 6.6 g/dL (6.4-8.2) 04/12/17 03:05 Albumin 2.8 g/dL (3.4-5.0) L 04/12/17 03:05 Globulin 3.8 g/dL (2.5-4.5) 04/12/17 03:05 Albumin/Globulin Ratio 0.7 Ratio (1.1-2.1) L 04/12/17 03:05 Triglycerides 104 mg/dL (0-150) 04/11/17 03:00 Cholesterol 145 mg/dL (0-200) 04/11/17 03:00 LDL Cholesterol, Calc 63 mg/dL (0-100) 04/11/17 03:00 HDL Cholesterol 61 mg/dL (40-60) H 04/11/17 03:00 Cholesterol/HDL Ratio 2.4 (0.0-5.0) 04/11/17 03:00 Specimen Type Clean catch urine 04/10/17 15:07 Urine Color Yellow (YELLOW) 04/10/17 15:07 Urine Appearance Hazy (CLEAR) 04/10/17 15:07 Urine pH 5.0 (5.0 - 8.0) 04/10/17 15:07 Ur Specific [place] 1.020 (1.000-1.030) 04/10/17 15:07 Urine Protein 4+ (NEGATIVE) 04/10/17 15:07 Urine Glucose (UA) Negative (NEGATIVE) 04/10/17 15:07 Urine Ketones Negative (NEGATIVE) 04/10/17 15:07 Urine Occult Blood 3+ (NEGATIVE) 04/10/17 15:07 Urine Nitrite Negative (NEGATIVE) 04/10/17 15:07 Urine Bilirubin Negative (NEGATIVE) 04/10/17 15:07 Urine Urobilinogen Normal (NORMAL) 04/10/17 15:07 Ur Leukocyte Esterase 1+ (NEGATIVE) 04/10/17 15:07 Urine RBC 0-2 /HPF (NEGATIVE) 04/10/17 15:07 Urine WBC 3-5 /HPF (NEGATIVE) 04/10/17 15:07 Ur Squamous Epith Cells Negative /HPF (NEGATIVE) 04/10/17 15:07 Urine Bacteria Trace /HPF (NEGATIVE) 04/10/17 15:07 Urine Mucus Few /HPF (NEGATIVE) 04/10/17 15:07 Ur Culture Indicated? No/not indicated 04/10/17 15:07 - Plan (1) COPD with acute exacerbation Status: Acute Plan: sputum positive for Klebsiella, CONTINUE IV ATBX. RESP THERAPY, SUPPLEMENTAL O2. REPEAT AM LABS AND CHEST XRAY (2) Respiratory insufficiency Status: Acute Plan: supplemental O2, respiratory therapy, BiPAP (3) CHF (congestive heart failure) Status: Chronic Qualifiers: Congestive heart failure type: combined Congestive heart failure chronicity : acute on chronic Qualified Code(s): I50.43 - Acute on chronic combined systolic (congestive) and diastolic (congestive) heart failure Plan: I & OS, BP CONTROL
[2017-04-12] MEDS: CRESTOR TAB 10 MG PO SCH (20:02)
[2017-04-12] MEDS: NEURONTIN TAB 600 MG PO SCH (20:02)
[2017-04-12] MEDS: SNACK - Diabetic Appropriate PO SCH (20:03)
[2017-04-13] MEDS: DUONEB 0.5 MG/3 MG NEB SCH ×3 (01:00→08:28)
[2017-04-13] MEDS: SOLU-Medrol 40 MG VIAL IVP SCH (04:31)
[2017-04-13 05:24] LABS: ABG BASE EXCESS 11.4 mmol/L (-2.0-2.0)
[2017-04-13 05:26] LABS: ABG ALLEN TEST POS; ABG HCO3 37.8 mmol/L (22-26)
[2017-04-13] MEDS ORDERED: GLUCOPHAGE ONE (06:02)
[2017-04-13] MEDS: JANUVIA PO SCH (06:05)
[2017-04-13] MEDS: GLUCOPHAGE PO SCH (06:05)
[2017-04-13 06:15] LABS: BASOPHILS % (AUTO) 0.3 % (0.2-1.0); HEMATOCRIT 35.5 % (42.0-54.0); HEMOGLOBIN 11.8 g/dL (13.5-18.0); LYMPHOCYTES # (AUTO) 2.4 X10^3/uL (1.3-2.9); LYMPHOCYTES % (AUTO) 18.6 % (21.0-51.0); MEAN CORPUSCULAR HEMOGLOBIN 30.4 pg (27.0-34.0); MEAN CORPUSCULAR HGB CONC 33.1 g/dL (33.0-35.0); MEAN PLATELET VOLUME 8.2 fL (7.4-11.0); MONOCYTES # (AUTO) 1.2 x10^3/uL (0.3-0.8); MONOCYTES % (AUTO) 9.2 % (0.0-13.0); NEUTROPHILS # (AUTO) 9.4 x10^3/uL (2.2-4.8); NEUTROPHILS % (AUTO) 71.9 % (42.0-75.0); PLATELET COUNT 216 X10^3/uL (150.0-450.0); RED BLOOD COUNT 3.86 X10^6/uL (4.7-6.0); RED CELL DISTRIBUTION WIDTH 15.4 % (11.6-16.5); WHITE BLOOD COUNT 13.1 X10^3/uL (3.6-10.0)
[2017-04-13 06:38] LABS: ALANINE AMINOTRANSFERASE 25 Units/L (12-78); ALBUMIN 2.8 g/dL (3.4-5.0); ALKALINE PHOSPHATASE 53 Units/L (46-116); ASPARTATE AMINO TRANSFERASE 22 Units/L (15-37); BLOOD UREA NITROGEN 33 mg/dL (7-18); CALCIUM 8.4 mg/dL (8.5-10.1); CARBON DIOXIDE 34.3 mmol/L (21-32); CHLORIDE 105 mmol/L (98-107); COR CA(FOR HYPOALB) 9.4 mg/dL (8.5-10.1); COR NA(FOR HYPERGLY) 144 mmol/L (136-145); GLUCOSE 139 mg/dL (65-99); SODIUM 143 mmol/L (136-145); TOTAL PROTEIN 6.4 g/dL (6.4-8.2); eGFR BLACK RACES > 60 (>60); eGFR NON BLACK RACES > 60 (>60)
--- NOTE | 2017-04-13 07:23 | RAD ---
HISTORY: Follow up respiratory failure Study: Chest one view Comparison: April 12, 2017 Findings: The heart is within normal limits in size. No congestive heart failure is noted. The lungs remain hy perinflated but free of acute alveolar infiltrates. No pleural effusions are identified. The bony th orax is unremarkable. IMPRESSION: Lungs remain hyperinflated but clear Reported By:
[2017-04-13] MEDS: BROVANA IN SCH (08:27)
[2017-04-13] MEDS: PULMICORT NEB TX 0.5 MG NEB SCH (08:27)
[2017-04-13] MEDS: FLONASE NASAL SPRAY ENOSTRIL SCH (09:31)
[2017-04-13] MEDS: LASIX PO SCH (09:31)
[2017-04-13] MEDS: ASPIRIN 81 MG CHEWTAB PO SCH (09:31)
[2017-04-13] MEDS: COLACE CAP 100 MG PO SCH (09:31)
[2017-04-13] MEDS: LOVAZA PO SCH (09:31)
[2017-04-13] MEDS: TENORMIN PO SCH (09:32)
[2017-04-13] MEDS: NIASPAN ER TAB 500 MG PO SCH (09:32)
[2017-04-13] MEDS: ROCEPHIN VIAL 1 GM 1 GM in NS 50 ML IV + SPIKE MINIBAG* 50 ML IV SCH (09:32)
[2017-04-13] MEDS: PriLOSEC PO SCH (09:32)
[2017-04-13] MEDS: ZESTRIL TAB 5 MG PO SCH (09:33)
[2017-04-13 09:34] VITALS: BP 156/62
--- NOTE | 2017-04-13 14:42 | PCM.DCPLAN ---
Discharge Summary - Admission Date Date of Admission: 04/10/17 - Discharge Date Discharge Date: 04/13/17 - Admission Diagnoses (1) COPD with acute exacerbation Status: Acute (2) Respiratory insufficiency Status: Acute (3) CHF (congestive heart failure) Status: Chronic - Discharge Diagnoses Discharge Diagnosis: SAME DISCHARGE - Discharge Medications Discharge Medications: Albuterol Neb 2.5MG/ 3Ml [ALBUTEROL NEB 2.5MG/ 3ML *] 1 inh INH PRN PRN [History] Fluticasone Nasal [place] [FLONASE NASAL SPRAY *] 1 spray INH BID 04/10/17 [ History] Hydrocodone-Acet 10/325 mg [NORCO 10 MG/325 MG *] 1 tab PO PRN PRN 04/10/17 [ History] Lorazepam [ATIVAN 1 MG TAB *] 1 tab PO PRN PRN 04/10/17 [History] Misc Home Med [Patient's Home Medication] 1 tab PO BID PRN 04/10/17 [History] Roma-3S/Dha/Epa/Fish Oil [Fish Oil 1,200 mg Softgel] 1 tab PO DAILY 04/10/17 [ History] Simethicone [Gas Relief] 1 tab PO PRN PRN 04/10/17 [History] Sitagliptin Phos/Metformin HCl [Janumet 50-1,000 mg Tablet] 1 tab PO BID [History] Levofloxacin [LEVAQUIN TAB 500 MG *] 500 mg PO DAILY #10 tab 04/13/17 [Rx] - Hospital Course Vital Signs: Temperature 98.3 F Pulse Rate [Left Brachial] 72 Pulse Rate 78 Respiratory Rate 18 Blood Pressure [Left Arm] 156/62 O2 Sat by Pulse Oximetry 96 Latest Lab Results: Laboratory Last Values WBC 13.1 X10^3/uL (3.6-10.0) H 04/13/17 04:25 RBC 3.86 X10^6/uL (4.7-6.0) L 04/13/17 04:25 Hgb 11.8 g/dL (13.5-18.0) L 04/13/17 04:25 Hct 35.5 % (42.0-54.0) L 04/13/17 04:25 MCV 92.0 fL (80.0-100.0) 04/13/17 04:25 MCH 30.4 pg (27.0-34.0) 04/13/17 04:25 MCHC 33.1 g/dL (33.0-35.0) 04/13/17 04:25 RDW 15.4 % (11.6-16.5) 04/13/17 04:25 Plt Count 216 X10^3/uL (150.0-450.0) 04/13/17 04:25 MPV 8.2 fL (7.4-11.0) 04/13/17 04:25 Neut % 71.9 % (42.0-75.0) 04/13/17 04:25 Lymph % 18.6 % (21.0-51.0) L 04/13/17 04:25 [place] % 9.2 % (0.0-13.0) 04/13/17 04:25 Eos % 0.0 % (0.9-2.9) L 04/13/17 04:25 Baso % 0.3 % (0.2-1.0) 04/13/17 04:25 Neut # 9.4 x10^3/uL (2.2-4.8) H 04/13/17 04:25 Lymph # 2.4 X10^3/uL (1.3-2.9) 04/13/17 04:25 [place] # 1.2 x10^3/uL (0.3-0.8) H 04/13/17 04:25 Eos # 0.0 x10^3/uL (0.0-0.2) 04/13/17 04:25 Baso # 0.0 X10^3/uL (0.0-0.1) 04/13/17 04:25 Absolute Nucleated RBC 0.0 /100WBC 04/13/17 04:25 Sample Site Lr 04/13/17 05:19 ABG pH 7.430 (7.35-7.45) 04/13/17 05:19 ABG pCO2 57.0 mmHg (35.0-45.0) H* 04/13/17 05:19 ABG pO2 65.0 mmHg (80.0-100.0) L 04/13/17 05:19 ABG HCO3 37.8 mmol/L (22-26) H* 04/13/17 05:19 ABG O2 Saturation 93.0 % (90-100) 04/13/17 05:19 ABG Base Excess 11.4 mmol/L (-2.0-2.0) H 04/13/17 05:19 Dutch Test Pos 04/13/17 05:19 A-a Gradient 13.0 mmHg 04/13/17 05:19 FiO2 21.000 04/13/17 05:19 Blood Gas Comments [place]hell well 04/13/17 05:19 Sodium 143 mmol/L (136-145) 04/13/17 04:25 Corrected Sodium 144 mmol/L (136-145) 04/13/17 04:25 Potassium 3.8 mmol/L (3.5-5.1) 04/13/17 04:25 Chloride 105 mmol/L (98-107) 04/13/17 04:25 Carbon Dioxide 34.3 mmol/L (21-32) H 04/13/17 04:25 BUN 33 mg/dL (7-18) H 04/13/17 04:25 Creatinine 1.10 mg/dL (0.70-1.30) 04/13/17 04:25 Est GFR (MDRD) Af Amer > 60 (>60) 04/13/17 04:25 Est GFR (MDRD) Non-Af > 60 (>60) 04/13/17 04:25 Glucose 139 mg/dL (65-99) H 04/13/17 04:25 Calcium 8.4 mg/dL (8.5-10.1) L 04/13/17 04:25 Corrected Calcium 9.4 mg/dL (8.5-10.1) 04/13/17 04:25 Magnesium 1.9 mg/dL (1.7-2.9) 04/11/17 03:00 Total Bilirubin 0.20 mg/dL (0.2-1.0) 04/13/17 04:25 AST 22 Units/L (15-37) 04/13/17 04:25 ALT 25 Units/L (12-78) 04/13/17 04:25 Alkaline Phosphatase 53 Units/L (46-116) 04/13/17 04:25 Creatine Kinase 201 Units/L (39-308) 04/10/17 21:30 CK-MB (CK-2) 4.9 ng/mL (0-4.0) H* 04/10/17 21:30 CK/CKMB % Calc 2.4 % (<4) 04/10/17 21:30 Troponin I 0.05 ng/mL (0-1.5) 04/10/17 21:30 B-Natriuretic Peptide 218 pg/mL (0-79) H 04/10/17 08:49 Total Protein 6.4 g/dL (6.4-8.2) 04/13/17 04:25 Albumin 2.8 g/dL (3.4-5.0) L 04/13/17 04:25 Globulin 3.6 g/dL (2.5-4.5) 04/13/17 04:25 Albumin/Globulin Ratio 0.8 Ratio (1.1-2.1) L 04/13/17 04:25 Triglycerides 104 mg/dL (0-150) 04/11/17 03:00 Cholesterol 145 mg/dL (0-200) 04/11/17 03:00 LDL Cholesterol, Calc 63 mg/dL (0-100) 04/11/17 03:00 HDL Cholesterol 61 mg/dL (40-60) H 04/11/17 03:00 Cholesterol/HDL Ratio 2.4 (0.0-5.0) 04/11/17 03:00 Specimen Type Clean catch urine 04/10/17 15:07 Urine Color Yellow (YELLOW) 04/10/17 15:07 Urine Appearance Hazy (CLEAR) 04/10/17 15:07 Urine pH 5.0 (5.0 - 8.0) 04/10/17 15:07 Ur Specific [place] 1.020 (1.000-1.030) 04/10/17 15:07 Urine Protein 4+ (NEGATIVE) 04/10/17 15:07 Urine Glucose (UA) Negative (NEGATIVE) 04/10/17 15:07 Urine Ketones Negative (NEGATIVE) 04/10/17 15:07 Urine Occult Blood 3+ (NEGATIVE) 04/10/17 15:07 Urine Nitrite Negative (NEGATIVE) 04/10/17 15:07 Urine Bilirubin Negative (NEGATIVE) 04/10/17 15:07 Urine Urobilinogen Normal (NORMAL) 04/10/17 15:07 Ur Leukocyte Esterase 1+ (NEGATIVE) 04/10/17 15:07 Urine RBC 0-2 /HPF (NEGATIVE) 04/10/17 15:07 Urine WBC 3-5 /HPF (NEGATIVE) 04/10/17 15:07 Ur Squamous Epith Cells Negative /HPF (NEGATIVE) 04/10/17 15:07 Urine Bacteria Trace /HPF (NEGATIVE) 04/10/17 15:07 Urine Mucus Few /HPF (NEGATIVE) 04/10/17 15:07 Ur Culture Indicated? No/not indicated 04/10/17 15:07 Hospital Course: Patient is a 71-year-old white male who was an admission from the emergency room after presenting with respiratory distress, COPD exacerbation with abnormal chest x-ray. Patient was admitted to ICU for respiratory therapy IV antibiotics, BiPAP, stat ABG and chest x-ray. Patient also received IV steroids for respiratory distress. After 1 day patient's condition overall is much improved however he continued to have +2 lower extremity pitting edema as well as diffuse expiratory wheezes and central rhonchi. Patient's sputum revealed Klebsiella and strep, patient was sensitive to IV antibiotics of Rocephin. Patient's condition gradually improved and patient reported he feels much better no respiratory distress. Patient's white count was morning was 13.1 patient stated he had a nebulizer machine at home as well as O2. Patient was allowed to discharge home by private vehicle to resume home medication as well as continue by mouth antibiotics. Patient was instructed to use O2 continuously as well as jet nebs every 4 hours until he follows up with Dr. Tate in 1 week patient verbalized understanding patient assurance to return to the emergency room or hospital if condition changed or worsen unexpectedly patient verbalized understanding and was discharged home with family member patient's condition was stable on discharge - Discharge Plan Disposition: 01 HOME, SELF-CARE Condition: Stable Prescriptions: Levofloxacin [LEVAQUIN TAB 500 MG *] 500 mg PO DAILY #10 tab - Follow ups/Referrals Follow ups/Referrals: ANGEL WATSON [Nurse Practitioner] - 04/23/17 2:45 pm - Instructions Instructions: Chronic Obstructive Pulmonary Disease Exacerbation, [id number] , Smoking Cessation, Tips for Success, Eejv-ui-Azgo, Type 2 Diabetes Mellitus, Adult, Diabetes and Standards of Medical Care, Levofloxacin tablets, Heart Failure, Eeir-ow-Trla Forms: Patient Portal
== END 2017-04-13 09:25 | disposition home or self-care (01) | DRG 190 ==
LOC: ER 08:06 → ICU 11:09
PROVIDERS: ADMIT Internal Medicine; ATTEND Internal Medicine
DX: J44.1 Chronic obstructive pulmonary disease with (acute) exacerbation (principal); I50.43 Acute on chronic combined systolic (congestive) and diastolic (congestive) heart failure; J44.0 Chronic obstructive pulmonary disease with (acute) lower respiratory infection; J20.8 Acute bronchitis due to other specified organisms; I10 Essential (primary) hypertension; E78.2 Mixed hyperlipidemia; R06.02 Shortness of breath; R06.00 Dyspnea, unspecified; B95.1 Streptococcus, group B, as the cause of diseases classified elsewhere; B95.3 Streptococcus pneumoniae as the cause of diseases classified elsewhere; B96.89 Other specified bacterial agents as the cause of diseases classified elsewhere
CPT/HCPCS: 36415; 36600; 71010; 80053; 80061; 81001; 82550; 82553; 82803; 83735; 83880; 84484; 85025; 87040; 87070; 87077; 87186; 87205; 93005; 93010; 94640; 94660; 96365; 96374; 96375; 99284; A4222; A4618; A7030; J0696; J1815; J1940; J2270; J2405; J2920; J2930; J3360; J7620; J7626

== ENCOUNTER → 2017-04-18 | Outpatient (CLI) | payer OTHER, MEDICAID ==
[2017-04-12 06:07] VITALS: BP 142/48
--- NOTE | 2017-04-18 18:26 | RAD ---
HISTORY: Dysphasia. Study: Barium swallow Comparison: None. Technique: Multiple fluoroscopic images of the esophagus were obtained during the administration of oral barium. Findings: There is some delayed swallowing and pooling of contrast at the vallecula. No obvious aspiration. Re maining swallowing mechanism is grossly unremarkable. Age related tertiary contractions are seen. Ot herwise , the thoracic esophagus demonstrates normal motility without evidence for extrinsic or intr insic mass lesion. Nonspecific narrowing of the GE junction with delayed transit time of the 13 mm b arium tablet. No obvious mass. There is no evidence for hiatal hernia or gastroesophageal reflux. The total fluoroscopy time utilized was 3.25 minutes. IMPRESSION: 1. Some delayed swallowing and pooling of the contrast at the vallecula. No obvious aspiration. Con type proof reproducer Speech Pathology consultation. 2. Nonspecific narrowing of the GE junction with delayed transit of the 13 mm barium tablet. No obvi ous mass. However, stricture or neoplasm not entirely excluded. Recommend direct visualization for f urther characterization. 3. No significant hiatal hernia or reflux. Reported By:
== END ==
LOC: RAD 11:10
PROVIDERS: ATTEND Internal Medicine Gastroenterology
DX: R13.11 Dysphagia, oral phase (principal)
CPT/HCPCS: 70370

== ENCOUNTER 2017-04-25 04:29 | Inpatient (IN) | payer OTHER, MEDICAID ==
[2017-04-25] MEDS ORDERED: SOLU-Medrol 125 MG VIAL ONE (04:34)
[2017-04-25] MEDS ORDERED: DUONEB 0.5 MG/3 MG ONE (04:35)
[2017-04-25] MEDS ORDERED: DECADRON INJ ONE (04:35)
[2017-04-25] MEDS ORDERED: DECADRON JET NEB NEB ONE (04:35)
[2017-04-25] MEDS ORDERED: SOLU-Medrol 125 MG VIAL IVP ONE (04:36)
[2017-04-25 04:37] VITALS: BMI 25.8
[2017-04-25 04:45] LABS: ABG HCO3 36.7 mmol/L (22-26)
[2017-04-25 04:46] LABS: ABG ALLEN TEST POS
[2017-04-25] MEDS ORDERED: DUONEB 0.5 MG/3 MG NEB ONE (04:48)
[2017-04-25 05:00] LABS: BASOPHILS # (AUTO) 0.1 X10^3/uL (0.0-0.1); BASOPHILS % (AUTO) 0.4 % (0.2-1.0); EOSINOPHILS # (AUTO) 0.1 x10^3/uL (0.0-0.2); HEMATOCRIT 38.2 % (42.0-54.0); HEMOGLOBIN 12.6 g/dL (13.5-18.0); LYMPHOCYTES # (AUTO) 2.7 X10^3/uL (1.3-2.9); LYMPHOCYTES % (AUTO) 22.2 % (21.0-51.0); MEAN CORPUSCULAR HEMOGLOBIN 30.3 pg (27.0-34.0); MEAN CORPUSCULAR VOLUME 91.9 fL (80.0-100.0); MEAN PLATELET VOLUME 7.5 fL (7.4-11.0); MONOCYTES # (AUTO) 1.1 x10^3/uL (0.3-0.8); MONOCYTES % (AUTO) 8.7 % (0.0-13.0); NEUTROPHILS # (AUTO) 8.2 x10^3/uL (2.2-4.8); NEUTROPHILS % (AUTO) 67.7 % (42.0-75.0); PLATELET COUNT 219 X10^3/uL (150.0-450.0); RED BLOOD COUNT 4.16 X10^6/uL (4.7-6.0); RED CELL DISTRIBUTION WIDTH 15.8 % (11.6-16.5); WHITE BLOOD COUNT 12.1 X10^3/uL (3.6-10.0)
[2017-04-25 05:16] LABS: ALANINE AMINOTRANSFERASE 16 Units/L (12-78); ALKALINE PHOSPHATASE 56 Units/L (46-116); ASPARTATE AMINO TRANSFERASE 20 Units/L (15-37); BLOOD UREA NITROGEN 12 mg/dL (7-18); CARBON DIOXIDE 35.3 mmol/L (21-32); CHLORIDE 101 mmol/L (98-107); COR CA(FOR HYPOALB) 9.8 mg/dL (8.5-10.1); COR NA(FOR HYPERGLY) 141 mmol/L (136-145); CREATININE 0.98 mg/dL (0.70-1.30); GLUCOSE 113 mg/dL (65-99); SODIUM 141 mmol/L (136-145); TOTAL PROTEIN 6.9 g/dL (6.4-8.2); eGFR BLACK RACES > 60 (>60); eGFR NON BLACK RACES > 60 (>60)
[2017-04-25] MEDS ORDERED: ATIVAN INJ 2 MG VIAL IVP ONE (05:18)
[2017-04-25] MEDS ORDERED: ATIVAN INJ 2 MG VIAL ONE (05:19)
[2017-04-25] MEDS ORDERED: NORMODYNE INJ 20 MG VIAL IVP ONE (05:20)
--- NOTE | 2017-04-25 05:20 | DR.GENAD ---
HPI - PCP Primary Care Physician: HERVE - Complaint/Symptoms Chief Complaint Doctors Comments: Patient presented to the ED with shortness of breath. reports that his symptoms onset yesterday. He has a history of COPD on home oxygen as needed. Denies fever. He has hypertensin but has not taken his medication in a while. Chief Complaint:: SHORT OF BREATH - Source History Provided: Patient - Mode of Arrival Mode of Arrival: Ambulatory - Timing Onset of Chief Complaint: 04/25/17 PMH - PMH Past Medical History: Yes Past Medical History: CHF, COPD, Diabetes, Dyslipidemia, Hypertension Past Surgical History: Yes Surgical History: Other Past Surgical History Comment: CATARACT SURGERY - Family History History of Family Medical Conditions: Yes Family Medical History: Hypertension - Social History Type of Tobacco Use: Cigarettes Alcohol Use: None Do you use any recreational Drugs:: No Lives With: Spouse Lives Where: Home - infectious screening Have you traveled outside the country in the last 6 months?: No Isolation: Standard ROS - Review of Systems Eyes: No Symptoms Reported ENTM: No Symptoms Reported Respiratoy: No Symptoms Reported Cardiovascular: No Symptoms Reported Gastrointestinal/Abdominal: No Symptoms Reported Genitourinary: No Symptoms Reported Neurological: No Symptoms Reported Musculoskeletal: No Symptoms Reported Integumentary: No Symptoms Reported Hematologic/Lymphatic: No Symptoms Reported Endocrine: No Symptoms Reported Psychiatric: No Symptoms Reported All Other Systems: Reviewed and Negative PE - Vital Signs Vitals: Temperature 98.3 F Pulse Rate [Apical] 98 Pulse Rate 84 Respiratory Rate 22 Blood Pressure [Left Arm] 241/102 Blood Pressure 219/92 O2 Sat by Pulse Oximetry 95 - General General Appearance: Alert, In No Apparent Distress - Head Head Exam: Normal Inspection, Atraumatic - Eyes Eye exam: Normal Appearance, PERRL, EOMI - ENT ENT Exam: Normal Exam External Ear Exam: Normal External Inspection TM/Canal Exam: Bilateral Normal Nose Exam: Normal Nose Exam Mouth Exam: Tongue Swelling Throat Exam: Normal Inspection - Neck Neck Exam: Normal Inspection, Full ROM - Chest Chest Inspection: Normal Inspection, Symmetric Chest Wall Rise - Respiratory Respiratory Exam: Normal Lung Sounds Bilat Respiratory Exam: Bilateral Wheezing, Bilateral Decreased Breath Sounds - Cardiovascular Cardiovascular Exam: Regular Rate - Abdominal Exam Abdominal Exam: Normal Inspection Abdominal Tenderness: negative: RUQ, RLQ, LUQ, LLQ, Epigastrium, Suprapubic, Diffuse, Mild, Moderate, Severe, Other - Extremities Extremities Exam: Normal Inspection - Back Back Exam: Normal Inspection, Full ROM - Neurologic Neurological Exam: Alert, Oriented X3, CN II-XII Intact - Psychiatric Psychiatric Exam: Normal Affect - Skin Skin Exam: Warm, Dry, Intact Course - Treatment Treatment: --DuoNebs, Labetalol--Patient had episode with bradycardia s/p cardiazem for hypertension 227 systolic. - Reevaluation 1st: Improved - Consultation Called: 07:10 (Dr Cortes advised admission for further care) ROR - Labs Reviewed Result Diagrams: 04/25/17 04:40 04/25/17 04:40 Laboratory: WBC 12.1 X10^3/uL (3.6-10.0) H 04/25/17 04:40 RBC 4.16 X10^6/uL (4.7-6.0) L 04/25/17 04:40 Hgb 12.6 g/dL (13.5-18.0) L 04/25/17 04:40 Hct 38.2 % (42.0-54.0) L 04/25/17 04:40 MCV 91.9 fL (80.0-100.0) 04/25/17 04:40 MCH 30.3 pg (27.0-34.0) 04/25/17 04:40 MCHC 33.0 g/dL (33.0-35.0) 04/25/17 04:40 RDW 15.8 % (11.6-16.5) 04/25/17 04:40 Plt Count 219 X10^3/uL (150.0-450.0) 04/25/17 04:40 MPV 7.5 fL (7.4-11.0) 04/25/17 04:40 Neut % 67.7 % (42.0-75.0) 04/25/17 04:40 Lymph % 22.2 % (21.0-51.0) 04/25/17 04:40 [place] % 8.7 % (0.0-13.0) 04/25/17 04:40 Eos % 1.0 % (0.9-2.9) 04/25/17 04:40 Baso % 0.4 % (0.2-1.0) 04/25/17 04:40 Neut # 8.2 x10^3/uL (2.2-4.8) H 04/25/17 04:40 Lymph # 2.7 X10^3/uL (1.3-2.9) 04/25/17 04:40 [place] # 1.1 x10^3/uL (0.3-0.8) H 04/25/17 04:40 Eos # 0.1 x10^3/uL (0.0-0.2) 04/25/17 04:40 Baso # 0.1 X10^3/uL (0.0-0.1) 04/25/17 04:40 Absolute Nucleated RBC 0.0 /100WBC 04/25/17 04:40 Sample Site L rad 04/25/17 04:33 ABG pH 7.360 (7.35-7.45) 04/25/17 04:33 ABG pCO2 65.0 mmHg (35.0-45.0) H* 04/25/17 04:33 ABG pO2 103.0 mmHg (80.0-100.0) H 04/25/17 04:33 ABG HCO3 36.7 mmol/L (22-26) H* 04/25/17 04:33 ABG O2 Saturation 98.0 % (90-100) 04/25/17 04:33 ABG Base Excess 9.0 mmol/L (-2.0-2.0) H 04/25/17 04:33 Dutch Test Pos 04/25/17 04:33 A-a Gradient 15.0 mmHg 04/25/17 04:33 FiO2 28.000 04/25/17 04:33 Blood Gas Comments [place] well, afh 04/25/17 04:33 Sodium 141 mmol/L (136-145) 04/25/17 04:40 Corrected Sodium 141 mmol/L (136-145) 04/25/17 04:40 Potassium 4.1 mmol/L (3.5-5.1) 04/25/17 04:40 Chloride 101 mmol/L (98-107) 04/25/17 04:40 Carbon Dioxide 35.3 mmol/L (21-32) H 04/25/17 04:40 BUN 12 mg/dL (7-18) 04/25/17 04:40 Creatinine 0.98 mg/dL (0.70-1.30) 04/25/17 04:40 Est GFR (MDRD) Af Amer > 60 (>60) 04/25/17 04:40 Est GFR (MDRD) Non-Af > 60 (>60) 04/25/17 04:40 Glucose 113 mg/dL (65-99) H 04/25/17 04:40 Calcium 9.0 mg/dL (8.5-10.1) 04/25/17 04:40 Corrected Calcium 9.8 mg/dL (8.5-10.1) 04/25/17 04:40 Total Bilirubin 0.20 mg/dL (0.2-1.0) 04/25/17 04:40 AST 20 Units/L (15-37) 04/25/17 04:40 ALT 16 Units/L (12-78) 04/25/17 04:40 Alkaline Phosphatase 56 Units/L (46-116) 04/25/17 04:40 Total Protein 6.9 g/dL (6.4-8.2) 04/25/17 04:40 Albumin 3.0 g/dL (3.4-5.0) L 04/25/17 04:40 Globulin 3.9 g/dL (2.5-4.5) 04/25/17 04:40 Albumin/Globulin Ratio 0.8 Ratio (1.1-2.1) L 04/25/17 04:40 - XRAY XRAY Interpreted by: Radiologist (Chest: Mild cardiomegaly and central vascular congestion) - Diagnosis Discharge Problem: Hypertensive urgency, Acute pulmonary edema with congestive heart failure COPD (chronic obstructive pulmonary disease) Qualifiers: COPD type: COPD with acute exacerbation Qualified Code(s): J44.1 - Chronic obstructive pulmonary disease with (acute) exacerbation - Discharge Plan Condition: Stable - Follow ups/Referrals Follow ups/Referrals: NFD,None [Primary Care Provider] - 3 days - Instructions
[2017-04-25] MEDS ORDERED: VALIUM INJ ONE (05:27)
[2017-04-25] MEDS ORDERED: VALIUM INJ IVP ONE ×2 (05:28→05:35)
[2017-04-25] MEDS ORDERED: NORMODYNE INJ 20 MG VIAL ONE (05:29)
[2017-04-25] MEDS: NS 1000 ML 1,000 ML IV SCH ×2 (05:34→09:19)
--- NOTE | 2017-04-25 05:39 | RAD ---
EXAM: Chest X-ray INDICATION: Shortness of breath COMPARISION: Prior exam from April 13, 2017 TECHNIQUE: Single view FINDINGS: The lungs are clear and the lung volumes are within normal limits. No pleural effusion or pneumothor ax. The cardiac silhouette is mildly enlarged and there central vascular congestion. The regional s [place] is intact. IMPRESSION: There is mild cardiomegaly and central vascular congestion. Reported By:
[2017-04-25] MEDS ORDERED: CARDIZEM INJ 50 MG VIAL ONE (06:11)
[2017-04-25] MEDS ORDERED: NITROSTAT SL PRN (06:33)
[2017-04-25 06:59] LABS: BILIRUBIN,URINE NEGATIVE (NEGATIVE); BLOOD/HEMOGLOBIN,URINE 4+ (NEGATIVE); GLUCOSE, URINE NEGATIVE (NEGATIVE); KETONES,URINE NEGATIVE (NEGATIVE); LEUKOCYTE ESTERASE ,URINE NEGATIVE (NEGATIVE); NITRITES,URINE NEGATIVE (NEGATIVE); PROTEIN,URINE 3+ (NEGATIVE); UROBILINOGEN,URINE NORMAL (NORMAL)
[2017-04-25 07:09] LABS: AMORPHOUS SEDIMENT,UR TRACE /HPF (NEGATIVE); APPEARANCE,URINE CLEAR (CLEAR); BACTERIA,URINE NEGATIVE /HPF (NEGATIVE); COLOR,URINE YELLOW (YELLOW); SQUAMOUS EPITHELIAL CELL,UR RARE /HPF (NEGATIVE)
[2017-04-25 07:09] LABS: ABG ALLEN TEST POS
[2017-04-25 07:10] LABS: GRANULAR CASTS,URINE FEW /LPF (NEGATIVE); MUCUS,URINE FEW /HPF (NEGATIVE)
[2017-04-25 07:11] LABS: B-TYPE NATRIURETIC PEPTIDE 71.6 pg/mL (0-79)
[2017-04-25 07:26] LABS: CKMB % 2.9 % (<4); CREATINE KINASE 58 Units/L (39-308); CREATINE KINASE MB 1.7 ng/mL (0-4.0); TROPONIN I < 0.02 ng/mL (0-1.5)
[2017-04-25 07:40] LABS: ABG ALLEN TEST POS
[2017-04-25 08:03] LABS: BASOPHILS # (AUTO) 0.1 X10^3/uL (0.0-0.1); BASOPHILS % (AUTO) 0.5 % (0.2-1.0); EOSINOPHILS # (AUTO) 0.1 x10^3/uL (0.0-0.2); EOSINOPHILS % (AUTO) 0.5 % (0.9-2.9); HEMOGLOBIN 12.7 g/dL (13.5-18.0); LYMPHOCYTES # (AUTO) 2.1 X10^3/uL (1.3-2.9); LYMPHOCYTES % (AUTO) 11.2 % (21.0-51.0); MEAN CORPUSCULAR HEMOGLOBIN 30.1 pg (27.0-34.0); MEAN CORPUSCULAR HGB CONC 32.6 g/dL (33.0-35.0); MEAN CORPUSCULAR VOLUME 92.2 fL (80.0-100.0); MEAN PLATELET VOLUME 7.4 fL (7.4-11.0); MONOCYTES # (AUTO) 0.2 x10^3/uL (0.3-0.8); MONOCYTES % (AUTO) 0.9 % (0.0-13.0); NEUTROPHILS # (AUTO) 15.9 x10^3/uL (2.2-4.8); NEUTROPHILS % (AUTO) 86.9 % (42.0-75.0); PLATELET COUNT 259 X10^3/uL (150.0-450.0); RED BLOOD COUNT 4.23 X10^6/uL (4.7-6.0); RED CELL DISTRIBUTION WIDTH 15.6 % (11.6-16.5); WHITE BLOOD COUNT 18.3 X10^3/uL (3.6-10.0)
[2017-04-25 08:08] LABS: BLOOD UREA NITROGEN 14 mg/dL (7-18); CALCIUM 8.9 mg/dL (8.5-10.1); CARBON DIOXIDE 35.9 mmol/L (21-32); CHLORIDE 101 mmol/L (98-107); COR NA(FOR HYPERGLY) 142 mmol/L (136-145); CREATININE 1.15 mg/dL (0.70-1.30); GLUCOSE 190 mg/dL (65-99); SODIUM 140 mmol/L (136-145); eGFR BLACK RACES > 60 (>60); eGFR NON BLACK RACES > 60 (>60)
[2017-04-25] MEDS ORDERED: CIPRO IV 200 MG PREMIX* 200 MG/100 ML BAG IV SCH (09:00)
[2017-04-25] MEDS ORDERED: DUONEB 0.5 MG/3 MG NEB SCH ×2 (09:00)
[2017-04-25] MEDS ORDERED: LASIX IVP SCH (09:00)
[2017-04-25 10:12] LABS: ABG ALLEN TEST POS
[2017-04-25] MEDS ORDERED: AMIDATE INJ 40 MG VIAL ONE (10:26)
[2017-04-25] MEDS ORDERED: ATROPINE SULFATE ABBOJECT IVP PRN (10:44)
[2017-04-25] MEDS: ADRENALINE CHL INJ IVP PRN ×4 (10:59→11:53)
[2017-04-25] MEDS ORDERED: NS 250 ML IV 250 ML IV ONE (11:09)
[2017-04-25] MEDS ORDERED: ADRENALINE CHL INJ 3 MG in NS 250 ML IV 247 ML IV PRN (11:20)
[2017-04-25] MEDS ORDERED: ATROPINE SULFATE ABBOJECT IVP ONE (11:21)
[2017-04-25] MEDS: SODIUM BICARBONATE 8.4% INJ ADULT IVP PRN ×3 (11:41→12:23)
--- NOTE | 2017-04-25 12:07 | DR.H&P ---
H&P - History & Physical for Day of: H&P Date: 04/25/17 - Chief Complaint Chief Complaint: SOB - Allergies Allergies/Adverse Reactions: Allergies Allergy/AdvReac Type Severity Reaction Status Date / Time No Known Drug Allergies Allergy Verified 04/10/17 09:11 - History of Present Illness History of Present Illness: 71 WM ADMITTED FROM ER AFTER PRESENTING WITH FAMILY CO SEVERE SOB. PT HAS PMH OF COPD AND ON O2. PT WAS NOTED PT HAVE SEVERE EXP WHEEZES DIFFUSE ON ADMISSION. PT TRIPOD IN RESP DISTRESS. PT ADMITTED TO ICU, ADMISSION LABS WBC 12.1 HBG 12.6 ABG PCO2 65, PO2 103.0 HCO3 36.7. PT PLACED ON BIPAP. PMH, PT FAMILY STATES NEGATIVE CARDIAC HISTORY, POS END STAGE RESP DISEASE - Past Medical History Past Medical History: CHF, COPD, Diabetes, Dyslipidemia, GERD, Hypertension - Past Surgical History Surgical History: Other - Family History Family Medical History: Hypertension - Social History Does patient currently use any type of tobacco product: Yes Have you used tobacco products in the last 12 months: Yes Type of Tobacco Use: Cigarettes How many years tobacco product used: 50 Does any household member use tobacco: No Alcohol Use: None Drug Use: None - Medications Home Medications: Albuterol Sulfate [Proair Hfa] 1 inh INH PRN PRN 04/25/17 [History Confirmed ] Cholecalciferol (Vitamin D3) [Vitamin D3] 1 tab PO WEEKLY 04/25/17 [History Confirmed 04/25/17] Cilostazol [PLETAL tab 100 mg *] 1 tab PO BID 04/25/17 [History Confirmed ] Fluticasone/Salmeterol [Advair Diskus 250-50 Mcg/Dose 14-dose] 1 inh INH BID [History Confirmed 04/25/17] Morphine Sulfate 15 mg PO BID PRN 04/25/17 [History Confirmed 04/25/17] Grover-3 Fatty Acids/Fish Oil [Fish Oil 1,000 mg Capsule] 1 tab PO BID 04/25/17 [ History Confirmed 04/25/17] Sitagliptin Phos/Metformin HCl [Janumet 50-1,000 mg Tablet] 1 tab PO BID [History Confirmed 04/25/17] - Review of Systems Constitutional: Weakness Eyes: No Symptoms Reported ENT: No Symptoms Reported Respiratory: Cough, Shortness of Breath, SOB with Excertion, Sputum, Wheezing Cardiovascular: Chest Pain, Palpitations Gastrointestinal: No Symptoms Reported Genitourinary: No Symptoms Reported Musculoskeletal: Back Pain, Leg Pain Skin: No Symptoms Reported Neurological: Weakness, Confusion - Physical Exam Vital Signs: Temperature 94 F Pulse Rate [Apical] 94 Pulse Rate 94 Respiratory Rate 32 Blood Pressure [Left Arm] 113/60 Blood Pressure 154/76 O2 Sat by Pulse Oximetry 96 Oriented: Person Eyes: Normal Ear: Normal Nose: Normal Respiratory: Diminished Throughout Cardiovascular: Tachycardia, Edema (+ EDEMA BILATERAL LOWER EXTREMITIES) : Normal Auscultation: Bowel Sounds: Normal Palpation: Normal Tenderness: Epigastric Skin: Decreased Turgur Musculoskeletal: Back:Thoracic, Back:Lumbar, Sensory Deficit (BILATERAL LOWER EXTREMITY DECREASED SENSATION) Affect: Anxious Speech Pattern: Delayed (DUE TO RESP DISTRESS) - Assessment/Plan (1) Respiratory distress, acute Status: Acute Plan: ADMIT, ICU, [employer], REPEAT ABG, BIPAP, SUPPLEMENTAL O2, BLOOD PRESSURE MONITORING, LASIX. STRICT I & O'S (2) Acute pulmonary edema with congestive heart failure Status: Acute (3) Hypertensive urgency Status: Acute (4) Respiratory insufficiency Status: Acute
[2017-04-25] MEDS ORDERED: D5W 250 ML IV 250 ML IV ONE (12:11)
[2017-04-25] MEDS ORDERED: LEVOPHED INJ 8 MG in D5W 250 ML IV 242 ML IV PRN (12:16)
[2017-04-25] MEDS ORDERED: NS 100 ML IV 100 ML IV ONE ×2 (12:19→12:33)
[2017-04-25] MEDS ORDERED: VASOSTRICT INJ 20 UNITS VIAL IVP PRN (12:25)
[2017-04-25] MEDS ORDERED: TRANEXAMIC ACID IV ONE (12:32)
[2017-04-25] MEDS ORDERED: TRANEXAMIC ACID 1,000 MG in NS 100 ML IV 100 ML IV SCH (12:37)
[2017-04-25 13:08] LABS: ABG BASE EXCESS -3.8 mmol/L (-2.0-2.0); ABG HCO3 27.6 mmol/L (22-26)
--- NOTE | 2017-04-25 13:36 | RAD ---
Chest, one view Indication: Intubation, central line placement Comparison: Radiograph from earlier today Findings: A tracheostomy tube appears well positioned, terminating at the level of the clavicles. A right IJ CVL terminates over the cavoatrial junction without pneumothorax. There is stable cardiomeg antonio with new bilateral interstitial prominence, suggestive for interstitial edema. No focal consolid ation or significant effusion is identified. Impression: Cardiomegaly with new interstitial edema, suggestive for decompensated congestive failure. Tracheostomy and right IJ CVL appear well positioned without pneumothorax. Reported By:
[2017-04-25 13:47] LABS: CKMB % 2.3 % (<4); CREATINE KINASE MB 1.8 ng/mL (0-4.0); TROPONIN I 0.02 ng/mL (0-1.5)
--- NOTE | 2017-04-25 14:34 | DR.UPDATE ---
H&P Update History and Physical Update: History and Physical reviewed and patient examined. Changes noted: NO Yes with the following:agree with H&P. will proceed with central line placement as requested by accepting facility. Procedures (ALL) - Central Line Placement PCM.CLCO: verbal consent Time out performed: Yes Patient placed pm monitor/pulse ox: Yes prep: mask, gown, gloves, other Centrial line prep: chlorhexidine scrub, sterile drapes applied Local anesthsia used: lidocane 1% Ultrasound used for placement: Yes Central line lumen ininserted: triple (right IJ TLC) Post procedure: sutured in place, good blood return, all ports aspirated, flushed,capped, sterile dressing applied Post procedure xray: tip oc catheter in good position, no pneumothorax seen, other Patient tolerated procedure: Yes Complications: none
--- NOTE | 2017-04-25 14:40 | DR.UPDATE ---
H&P Update History and Physical Update: History and Physical reviewed and patient examined. Changes noted: NO Yes with the following:agree with H&P. will intubate patient as requested by Dr Tate. Procedures (ALL) - Intubation Time out performed: Yes Sedative: etomidate (20mg) paralytic: succinylchline (100mg) Laryngoscope: sudeep, fiber optic video scope Assist device used: other (fast trach 5, glidescope 3, [place]) ET tube size: other (tracheostomy 6.0) Tube secured location: other (trach collar sutured with 3.0 prolene x3) Tube placement confirmation: equal breath sounds bilaterally, no breath sounds over epigastrium, comfirmation by capnometer Patient tolerated procedure: Yes Intubation complications: unable to intubate, difficult intubation (called to intubate pt in icu 4. pt in acute resp distress and sitting up in bed leaning over with bipap attempting to breath. pre02 with bipap at 100% x3 min. etomidate 20mg followed by anectine 100mg. RT attempt to intubate for less than 5 seconds. I intervene with glidescope3 and immediatly notice very abnormal anatomy. unable to differentiate base of tongue from velecula from oropharnyx. scope withdrawn and bag/mask ventilation adequate with nasal airway while waiting on fastraclma and bronchoscope/aintree. fastrach lma5 inserted with some ventilation. seal was 50%. attempted to intubate with aintree threaded over FOB. unable to vis cords, however. Lma was withdrawn and glidescope 3 attempted again. no visualization of cords. 8.0 ett seemed to have passed as ETCO2 conformed and breath sounds auscultated over lungs. however, SaO2 droped over next 3-5 minutes as did vital signs. ETTremoved and bag/mask ventilation returned SaO2 to >85%. 2 more glidescope attempts were attempted without success ans was another with the fastrachlma. during this time, SaO2 remained in the high 80's. cricothyrotomy was considered, but ventilation appeared adequate at this time and ,notwithstanding, i was unable to locate the corrct insertion site due to the distorted anatomy. Dr rosas arrived at to perform tracheostomy. this was performed while bag/mask vent was maintained. pt to vent , right IJ per me. Pt transported), surgical airway needed, hypotension, hypoxia
[2017-04-25 14:55] VITALS: BP 89/52
[2017-04-26] MEDS ORDERED: ASPIRIN EC 81 MG PO SCH (09:00)
[2017-04-26] MEDS ORDERED: SOLU-Medrol 40 MG VIAL IVP SCH (09:00)
== END 2017-04-25 13:50 | disposition short-term general hospital (02) | DRG 208 ==
LOC: ER 04:29 → ICU 07:29
PROVIDERS: ADMIT Internal Medicine; ATTEND Internal Medicine
PROC: 02HV33Z Insertion of Infusion Device into Superior Vena Cava, Percutaneous Approach (ICD-10-PCS; principal; 2017-04-25)
PROC: 0BH17EZ Insertion of Endotracheal Airway into Trachea, Via Natural or Artificial Opening (ICD-10-PCS; 2017-04-25)
PROC: 5A12012 Performance of Cardiac Output, Single, Manual (ICD-10-PCS; 2017-04-25)
PROC: 5A1935Z Respiratory Ventilation, Less than 24 Consecutive Hours (ICD-10-PCS; 2017-04-25)
DX: J96.20 Acute and chronic respiratory failure, unspecified whether with hypoxia or hypercapnia (principal); J44.1 Chronic obstructive pulmonary disease with (acute) exacerbation; J81.0 Acute pulmonary edema; I16.0 Hypertensive urgency; I50.9 Heart failure, unspecified; I87.2 Venous insufficiency (chronic) (peripheral); R94.31 Abnormal electrocardiogram [ECG] [EKG]; E78.2 Mixed hyperlipidemia; I10 Essential (primary) hypertension
CPT/HCPCS: 36415; 36556; 36600; 51702; 71010; 80048; 80053; 81001; 82550; 82553; 82803; 83880; 84484; 85025; 85378; 87040; 87086; 93005; 93010; 94003; 94640; 94660; 96365; 96367; 96374; 96375; 99284; 99285; A4222; A4618; A7030; J1100; J1940; J2060; J2930; J3360; J3490; J7620